=== PATIENT | female | born 1940 | race Caucasian/White ===

== ENCOUNTER → 2017-12-01 | Outpatient (CLI) | payer MEDICARE, OTHER | LOC: M.RAD 11:52 | DX: J06.9 Acute upper respiratory infection, unspecified (principal); Z88.1 Allergy status to other antibiotic agents; Z88.8 Allergy status to other drugs, medicaments and biological substances ==

== ENCOUNTER → 2018-07-12 | Outpatient (CLI) | payer MEDICARE, OTHER | LOC: M.RAD 15:57 | DX: R07.82 Intercostal pain (principal) ==

== ENCOUNTER 2020-07-02 18:55 | Inpatient (IN) | payer MEDICARE, OTHER ==
[~2020-07-02] VITALS: Ht 154.9 cm; Wt 70.8 kg
[2020-07-02 19:14] VITALS: BP 169/77
[2020-07-02] MEDS ORDERED: CIMZIA400 MG/2 M SUBQ (19:43)
[2020-07-02 19:44] LABS: HEMATOCRIT 38.8 % (37.0-47.0); HEMOGLOBIN 13.2 gm/dL (12.0-15.0); MCH 30.4 pg (26.0-34.0); MCV 89.6 fL (80.0-100.0); NUCLEATED RBCS 0 /100WBC; PLATELET COUNT* 283 thou/uL (150-400); RBC 4.33 mil/uL (4.20-5.00); RDW-CV 13.4 % (10.5-14.5); WBC 10.4 thou/uL (4.0-11.0)
[2020-07-02] MEDS ORDERED: LEFLUNOMIDE 1010 MG PO (19:44)
[2020-07-02] MEDS ORDERED: ELIQUIS5 MG PO (19:44)
[2020-07-02] MEDS ORDERED: LISINOPRIL20 MG PO (19:45)
[2020-07-02] MEDS ORDERED: TOPROL XL25 MG PO (19:46)
[2020-07-02] MEDS ORDERED: MIRAPEX0.5 MG PO (19:46)
[2020-07-02] MEDS ORDERED: PROLIA60 MG/1 ML SUBQ (19:47)
[2020-07-02] MEDS ORDERED: CRESTOR5 MG PO (19:47)
[2020-07-02] MEDS ORDERED: CALCIUM500 MG PO (19:48)
[2020-07-02] MEDS ORDERED: SERTRALINE HCL100 MG PO (19:48)
[2020-07-02] MEDS ORDERED: CALCIUM 1,0001 EACH PO (19:50)
[2020-07-02] MEDS ORDERED: FISH OIL 1,0001 EAC9 PO (19:50)
[2020-07-02] MEDS ORDERED: PROCTOSOL-HC28.35 GM TOP (19:51)
[2020-07-02] MEDS ORDERED: FOLIC ACID1 MG PO (19:51)
[2020-07-02 19:52] LABS: CALCIUM 8.7 mg/dL (8.5-10.1); POTASSIUM 4.3 mmol/L (3.5-5.1)
[2020-07-02] MEDS ORDERED: MAGNESIUM250 M1 PO (19:52)
[2020-07-02] MEDS ORDERED: MURO-12815 ML/BOT OPHTHALMIC (19:52)
[2020-07-02] MEDS ORDERED: SUPER THERAVIT1 EACH PO (19:52)
[2020-07-02 19:53] LABS: INR 1.1; PROTIME 11.4 Seconds (9.20-11.50)
[2020-07-02] MEDS ORDERED: MEDICAL THC (19:53)
[2020-07-02 19:56] LABS: ALBUMIN 2.7 g/dL (3.4-5.0); MAGNESIUM 2.2 mg/dL (1.8-2.4); TOTAL BILIRUBIN 0.3 mg/dL (<0.1-1.0); TOTAL PROTEIN 7.2 g/dL (6.4-8.2)
[2020-07-02 20:07] LABS: BE 1.2 mmol/L (-2 to +3); PCO2 35.1 mmHg (35.0-45.0); pH 7.463 (7.340-7.450)
[2020-07-02 20:12] LABS: PO2 57.8 mmHg (75.0-100.0)
[2020-07-02 20:18] LABS: ABSOLUTE BASOPHILS 0.1 thou/uL (0.0-0.2); ABSOLUTE EOSINOPHILS 2.3 thou/uL (0.0-0.7); ABSOLUTE LYMPHOCYTES 0.5 thou/uL (0.8-5.3); ABSOLUTE MONOCYTES 0.8 thou/uL (0.0-1.2); ABSOLUTE NEUTROPHILS 6.7 thou/uL (1.6-8.1); PLATELET ESTIMATE ADEQUATE
[2020-07-03 01:38] VITALS: BP 145/68
[2020-07-03 05:34] VITALS: BP 138/70
[2020-07-03 10:13] VITALS: BP 123/66
[2020-07-03 10:30] VITALS: BP 138/86
--- NOTE | 2020-07-03 14:00 | EKG ---
[place] [address] ELECTROCARDIOGRAM REPORT Name: TWAN LAMB Room: [address] IN ..#: [id number] Admission: 07/02/20 Attend Phys: Paul Juarez Discharge: Date of : 42 Date of Service: 07/02/20 190 Report #: [id number] THIS REPORT FOR: //name// [facility] ED Test Date: 2020-07-02 Test Time: 19:08:23 Pat Name: TWAN LAMB Department: Room: [facility] Gender: F River Captain: JESSE : 1940 Requested By: Belen Nieto Order Number: [id number] MD: Lj Castro Measurements Intervals [place] Rate: 90 P: -31 NV: 135 QRS: -29 QRSD: 94 T: 70 QT: 334 QTc: 409 Interpretive Statements Sinus tachycardia Premature atrial contractions borderline left axis deviation Low voltage, extremity and precordial leads No previous ECG available for comparison Electronically Signed On 07-03-2020 14:00:16 PRACTICING UROLOGIST by Lj Castro [email or web address] <ELECTRONICALLY SIGNED> By: Lj Castro MD, FACC 07/03/20 1400 [id number] Lj Castro MD, FAC /EPI
[2020-07-03 20:00] VITALS: BP 144/73
[2020-07-04 00:15] VITALS: BP 146/44
[2020-07-04 04:44] VITALS: BP 160/80
[2020-07-04 06:12] LABS: ABSOLUTE BASOPHILS 0.1 thou/uL (0.0-0.2); ABSOLUTE LYMPHOCYTES 0.5 thou/uL (0.8-5.3); ABSOLUTE MONOCYTES 0.8 thou/uL (0.0-1.2); ABSOLUTE NEUTROPHILS 11.4 thou/uL (1.6-8.1); BASOPHILS 0.4 %; HEMATOCRIT 37.2 % (37.0-47.0); HEMOGLOBIN 12.3 gm/dL (12.0-15.0); LYMPHOCYTES 3.9 %; MCH 29.5 pg (26.0-34.0); MCHC 33.2 g/dL (28.0-37.0); MCV 88.9 fL (80.0-100.0); MONOCYTES 6.3 %; NUCLEATED RBCS 0 /100WBC; PLATELET COUNT* 291 thou/uL (150-400); POLYS 89.4 %; RBC 4.18 mil/uL (4.20-5.00); RDW-CV 13.3 % (10.5-14.5); WBC 12.8 thou/uL (4.0-11.0)
[2020-07-04 06:26] LABS: ALBUMIN 2.5 g/dL (3.4-5.0); CALCIUM 8.2 mg/dL (8.5-10.1); CREATININE 0.6 mg/dL (0.6-1.3); MAGNESIUM 2.2 mg/dL (1.8-2.4); POTASSIUM 4.3 mmol/L (3.5-5.1); TOTAL BILIRUBIN 0.3 mg/dL (<0.1-1.0); TOTAL PROTEIN 6.8 g/dL (6.4-8.2)
[2020-07-04 08:10] VITALS: BP 179/77
[2020-07-04 12:51] VITALS: BP 153/82
[2020-07-04 13:16] LABS: URINE BILIRUBIN NEGATIVE (Negative); URINE BLOOD TRACE (Negative); URINE CLARITY CLEAR; URINE COLOR YELLOW; URINE GLUCOSE-RANDOM NEGATIVE (Negative); URINE KETONES NEGATIVE (Negative); URINE LEUKOCYTES-REFLEX NEGATIVE (Negative); URINE NITRITE-REFLEX NEGATIVE (Negative); URINE PROTEIN NEGATIVE (Negative); URINE UROBILINOGEN 0.2 E.U./dl (0.2-1.0)
[2020-07-04 17:10] VITALS: BP 140/64
[2020-07-04 20:30] VITALS: BP 162/66
[2020-07-05] VITALS (8 sets, daily range): BP systolic 116–150; BP diastolic 57–94
[2020-07-05 05:52] LABS: ABSOLUTE BASOPHILS 0.1 thou/uL (0.0-0.2); ABSOLUTE LYMPHOCYTES 0.6 thou/uL (0.8-5.3); ABSOLUTE MONOCYTES 1.2 thou/uL (0.0-1.2); ABSOLUTE NEUTROPHILS 11.4 thou/uL (1.6-8.1); BASOPHILS 0.5 %; HEMOGLOBIN 12.5 gm/dL (12.0-15.0); LYMPHOCYTES 4.5 %; MCH 29.8 pg (26.0-34.0); MCHC 33.7 g/dL (28.0-37.0); MCV 88.4 fL (80.0-100.0); MONOCYTES 9.4 %; MPV 7.2 fl. (7.2-11.1); NUCLEATED RBCS 0 /100WBC; PLATELET COUNT* 304 thou/uL (150-400); POLYS 85.6 %; RBC 4.19 mil/uL (4.20-5.00); RDW-CV 13.6 % (10.5-14.5); WBC 13.3 thou/uL (4.0-11.0)
[2020-07-05 06:12] LABS: PREALBUMIN 11.7 mg/dL (18.0-35.7)
[2020-07-05 06:15] LABS: ALBUMIN 2.4 g/dL (3.4-5.0); CALCIUM 8.6 mg/dL (8.5-10.1); CREATININE 0.6 mg/dL (0.6-1.3); POTASSIUM 4.1 mmol/L (3.5-5.1); TOTAL BILIRUBIN 0.3 mg/dL (<0.1-1.0); TOTAL PROTEIN 6.7 g/dL (6.4-8.2)
[2020-07-05 19:29] LABS: BE -0.6 mmol/L (-2 to +3); PCO2 VENOUS 41.6 mmHg (41.0-51.0); PO2 VENOUS 42.9 mmHg (35.0-45.0)
[2020-07-05 19:37] LABS: CALCIUM 8.5 mg/dL (8.5-10.1); CREATININE 0.9 mg/dL (0.6-1.3); MAGNESIUM 2.1 mg/dL (1.8-2.4)
[2020-07-06] VITALS (9 sets, daily range): BP systolic 91–146; BP diastolic 42–67
[2020-07-06 06:06] LABS: ABSOLUTE BASOPHILS 0.1 thou/uL (0.0-0.2); ABSOLUTE EOSINOPHILS 0.1 thou/uL (0.0-0.7); ABSOLUTE MONOCYTES 1.2 thou/uL (0.0-1.2); ABSOLUTE NEUTROPHILS 8.7 thou/uL (1.6-8.1); BASOPHILS 0.6 %; EOSINOPHILS 1.2 %; HEMATOCRIT 38.8 % (37.0-47.0); HEMOGLOBIN 12.9 gm/dL (12.0-15.0); LYMPHOCYTES 9.4 %; MCH 29.5 pg (26.0-34.0); MCHC 33.3 g/dL (28.0-37.0); MCV 88.4 fL (80.0-100.0); MONOCYTES 10.8 %; MPV 7.5 fl. (7.2-11.1); NUCLEATED RBCS 0 /100WBC; PLATELET COUNT* 318 thou/uL (150-400); RBC 4.38 mil/uL (4.20-5.00); RDW-CV 13.1 % (10.5-14.5); WBC 11.2 thou/uL (4.0-11.0)
[2020-07-06 06:20] LABS: ALBUMIN 2.4 g/dL (3.4-5.0); CALCIUM 8.7 mg/dL (8.5-10.1); CREATININE 0.7 mg/dL (0.6-1.3); MAGNESIUM 1.8 mg/dL (1.8-2.4); POTASSIUM 4.1 mmol/L (3.5-5.1); TOTAL BILIRUBIN 0.5 mg/dL (<0.1-1.0); TOTAL PROTEIN 6.4 g/dL (6.4-8.2)
--- NOTE | 2020-07-06 08:27 | EKG ---
[place] [address] ELECTROCARDIOGRAM REPORT Name: ZAINABTWAN C Room: [address] ADM IN .R.#: [id number] Admission: 07/02/20 Attend Phys: Paul Juarez Discharge: Date of : 42 Date of Service: 07/05/20 1837 Report #: [id number] THIS REPORT FOR: //name// [facility] Test Date: 2020-07-05 Test Time: 18:37:18 Pat Name: TWAN LAMB Department: Room: [address] Gender: F Supervisor Chemical: : 1940 Requested By: Daija Stewart Order Number: [id number] Abida MD: Kd Verdin Measurements Intervals [place] Rate: 127 P: MN: QRS: -27 QRSD: 81 T: 71 QT: 295 QTc: 429 Interpretive Statements Atrial fibrillation Inferior infarct, old Compared to ECG 07/02/2020 19:08:23 Sinus tachycardia no longer present Electronically Signed On 07-06-2020 8:27:25 REAL ESTATE ADMINISTRATOR by Kd Verdin [email or web address] <ELECTRONICALLY SIGNED> By: Kd Verdin MD, FACC 07/06/20 0827 1837 1837 Kd Verdin MD, [facility] /EPI
--- NOTE | 2020-07-06 17:09 | 2DMMODE ---
[place] [address] 2 D/M-MODE ECHOCARDIOGRAM Name: TWAN LAMB Ashley Room: [address] IN [facility]#: [id number] Admission: 07/02/20 Attend Phys: Paul Juarez Discharge: Date of : 42 Date of Service: 07/06/20 1709 Report #: [id number] THIS REPORT FOR: cc: Cheryle Diehl MD, Lin W. MD Blick, David R. MD [facility] ~ APPROVED REPORT Study performed: 07/06/2020 14:35:22 EXAM: Comprehensive 2D, Doppler, and color-flow Echocardiogram Patient Location: In-Patient Room #: [facility] Status: routine BSA: 1.69 HR: 62 bpm BP: 125/67 mmHg Rhythm: NSR Other Information Study Quality: Good Indications Atrial Fibrillation 2D Dimensions IVSd: 10.28 (7-11mm) LVOT Diam: 19.23 (18-24mm) LVDd: 43.51 mm PWd: 7.81 (7-11mm) Ascending Ao: 32.08 (22-36mm) LVDs: 22.92 (25-40mm) Volumes Left Atrial Volume (Systole) LA ESV Index: 19.80 mL/m2 Aortic Valve AoV Peak Elijah.: 1.39 m/s AO Peak Gr.: 7.77 mmHg LVOT Max P.75 mmHg AO Mean Gr.: 3.78 mmHg LVOT Mean P.78 mmHg LVOT Max V: 0.97 m/s AO V2 VTI: 24.76 cm LVOT Mean V: 0.62 m/s ANDRES (VTI): 2.68 cm2 LVOT V1 VTI: 22.87 [place] [address] 2 D/M-MODE ECHOCARDIOGRAM Name: TWAN LAMB Room: [address] IN .R.#: [id number] Admission: 07/02/20 Attend Phys: Paul Juarez Discharge: Date of : 42 Date of Service: 07/06/20 1709 Report #: [id number] E/A Ratio: 1.06 MV Decel. Time: 254.85 ms MV E Max Elijah.: 0.94 m/s MV PHT: 73.91 ms MVA (PHT): 2.98 cm2 TDI E/Lateral E': 13.43 E/Medial E': 13.43 Medial E' Elijah.: 0.07 m/s Lateral E' Elijah.: 0.07 m/s Pulmonary Valve PV Peak Elijah.: 0.90 m/s PV Peak Gr.: 3.21 mmHg Left Ventricle The left ventricle is normal size. There is normal LV segmental wall motion. There is normal left ventricular wall thickness. Left ventricular systolic function is normal. The left ventricular ejection fraction is within the normal range. LVEF is 55-60%. The left ventricular diastolic function is normal. Right Ventricle The right ventricle is normal size. The right ventricular systolic function is normal. Atria The left atrium size is normal. The right atrium size is normal. Aortic Valve The aortic valve is normal in structure. No aortic regurgitation is present. There is no aortic valvular stenosis. Mitral Valve The mitral valve is normal in structure. There is no mitral valve regurgitation noted. No evidence of mitral valve stenosis. Tricuspid Valve The tricuspid valve is normal in structure. Unable to assess PA pressure. Trace tricuspid regurgitation. Pulmonic Valve Pulmonic valve is not well visualized. There is no pulmonic valvular regurgitation[place] [address] 2 D/M-MODE ECHOCARDIOGRAM Name: TWAN LAMB Room: [address] IN [facility]#: [id number] Admission: 07/02/20 Attend Phys: Paul Juarez Discharge: Date of : 42 Date of Service: 07/06/20 1709 Report #: [id number] The aortic root is normal in size. IVC is normal in size and collapses >50% with inspiration. Pericardium There is no pericardial effusion. <Conclusion> Left ventricular systolic function is normal. The left ventricular ejection fraction is within the normal range. <ELECTRONICALLY SIGNED> By: Kd Verdin MD, FACC 07/06/201708 08 08 Kd Verdin MD, FAC /INF
--- NOTE | 2020-07-06 22:37 | CON ---
[address] [address] CONSULTATION Name: TWAN LAMB Room: [address] IN M.R.#: [id number] Admission: 07/02/20 Attend Phys: Will Daley Discharge: Date of : 42 Report #: [id number] THIS REPORT FOR: cc: Cheryle Diehl MD, Lin W. MD ~ Davin Sánchez MD DATE OF SERVICE: 07/03/2020 Consult has been requested by Dr. Rick Flores. INDICATION FOR CONSULTATION: COVID-19. HISTORY OF PRESENT ILLNESS: This is a 79-year-old female with past medical history is as mentioned below. This does include a history of atrial fibrillation. The patient is on long-term anticoagulation. She does have a history of marijuana use. There is no known history of smoking cigarettes. The patient is now admitted with progressively increasing cough as well as shortness of breath over the last several days. The patient prior to this admission has been treated as an outpatient, initially with azithromycin and then also with prednisone. The patient's respiratory complaints; however, continued to worsen, she also has been more lethargic. The patient reports that she has mostly been sleeping the last few days. She reports having had a clear nasal discharge, weakness, decrease in appetite, nausea. She has been wheezing at times. The patient therefore eventually came to the Emergency Room in this hospital. The patient has been hypoxemic. Currently, requiring 3-3.5 liters oxygen to maintain O2 saturation in the low 90s. Overall, she does report improvement in her shortness of breath since she was admitted. The patient does have significant interstitial infiltrates. She currently is not febrile. REVIEW OF SYSTEMS: The patient's review of systems for 12 points is negative except as mentioned above. PAST MEDICAL HISTORY: Atrial fibrillation, on anticoagulation. I do not have a measure of her left ventricular ejection fraction available at this time, hypertension, osteoporosis, restless legs syndrome, hyperlipidemia. SOCIAL HISTORY: There is a history of marijuana use. There is no known history of smoking cigarettes. No known history of illegal drug use or significant alcohol use. FAMILY HISTORY: No pertinent family history. CURRENT MEDICATIONS: List in [employer] [place] [address] CONSULTATION Name: TWAN LAMB Room: [address]#: [id number] Admission: 07/02/20 Attend Phys: Will Daley Discharge: Date of : 42 Report #: [id number] HOME MEDICATIONS: [facility]. ALLERGIES: THE PATIENT IS REPORTED TO HAVE HAD AN ALLERGY TO CEPHALEXIN. PHYSICAL EXAMINATION: GENERAL: She is alert, awake and oriented, does not appear to be in any distress. VITAL SIGNS: Has a pulse of 76 and a blood pressure of 144/73. She is saturating 93% on 3-3.5 liters nasal cannula, respiratory rate was around 18-20 at the time of my evaluation, she is afebrile with a temperature of 36.8. HEENT: Head is normocephalic and atraumatic. NECK: Does not show raised JVP. CHEST: Breath sounds bilaterally equal, mildly decreased. No added sounds. HEART: Regular. There is no murmur. ABDOMEN: Soft and nontender. EXTREMITIES: Lower extremities show no edema and no calf tenderness. SKIN: Dry and intact. NEUROLOGICAL: Moves all extremities bilaterally equally and spontaneously with no focal deficit identified. LABORATORY DATA: The patient's chest x-ray films as well as report are reviewed. The patient's lab work including arterial blood gases in [facility] reviewed. ASSESSMENT/PLAN: 1. Acute hypoxemic respiratory failure secondary to COVID-19. Recommend continuing to titrate oxygen. 2. COVID-19. Considering that the patient has significant hypoxemia, I agree with dexamethasone as well as remdesivir as is currently ordered. I did discuss with the patient regarding use of convalescent plasma. The patient is agreeable and understands risks and benefits. If we were to recommend convalescent plasma for her, I would order a type and screen for tomorrow morning labs. In case the patient fails to improve, I will recommend having a low threshold of ordering convalescent plasma tomorrow morning. 3. Pulmonary infiltrates. I agree with Levaquin as currently prescribed. The patient did receive azithromycin as an outpatient recently as above. 4. Atrial fibrillation noted to be on anticoagulation. I do not have previous left ventricular ejection fraction available at this time. Thanks for this consultation. <ELECTRONICALLY SIGNED> By: Davin Sánchez MD 07/06/20 2237 2326 [id number] Sánchez MD /nt
[2020-07-07 01:05] VITALS: BP 127/55
[2020-07-07 04:30] VITALS: BP 123/83
[2020-07-07 06:10] LABS: CHOLESTEROL 87 mg/dL (<200); HDL CHOLESTEROL 41 mg/dL (>40); LDL CHOLESTEROL 41 mg/dL (<100); TC:HDL 2.1 Ratio (Not establshd); TRIGLYCERIDE 25 mg/dL (<150); VLDL 5 mg/dL (<40)
[2020-07-07 06:16] LABS: SERUM ASSESSMENT CLEAR
[2020-07-07 07:45] VITALS: BP 138/69
[2020-07-07 12:00] VITALS: BP 130/57
[2020-07-07 16:00] VITALS: BP 126/57
[2020-07-07 19:52] LABS: HEMATOCRIT 38.4 % (37.0-47.0); HEMOGLOBIN 13.1 gm/dL (12.0-15.0); MCH 30.1 pg (26.0-34.0); MCHC 34.1 g/dL (28.0-37.0); MCV 88.4 fL (80.0-100.0); MPV 7.1 fl. (7.2-11.1); NUCLEATED RBCS 0 /100WBC; PLATELET COUNT* 350 thou/uL (150-400); RBC 4.34 mil/uL (4.20-5.00); RDW-CV 13.4 % (10.5-14.5); WBC 10.5 thou/uL (4.0-11.0)
[2020-07-07 20:03] LABS: ALBUMIN 2.3 g/dL (3.4-5.0); CALCIUM 8.1 mg/dL (8.5-10.1); CREATININE 0.9 mg/dL (0.6-1.3); POTASSIUM 3.9 mmol/L (3.5-5.1); TOTAL BILIRUBIN 0.3 mg/dL (<0.1-1.0); TOTAL PROTEIN 6.6 g/dL (6.4-8.2)
[2020-07-07 20:07] LABS: ABSOLUTE LYMPHOCYTES 0.2 thou/uL (0.8-5.3); ABSOLUTE MONOCYTES 0.5 thou/uL (0.0-1.2); ABSOLUTE NEUTROPHILS 9.8 thou/uL (1.6-8.1); PLATELET ESTIMATE ADEQUATE
[2020-07-08] VITALS: BP 113/55
[2020-07-08 04:00] VITALS: BP 154/68
[2020-07-08 09:00] VITALS: BP 125/55
[2020-07-08 16:00] VITALS: BP 150/63
[2020-07-08 20:00] VITALS: BP 112/86
[2020-07-09 04:15] VITALS: BP 149/59
[2020-07-09 04:57] LABS: ABSOLUTE LYMPHOCYTES 0.9 thou/uL (0.8-5.3); ABSOLUTE MONOCYTES 1.2 thou/uL (0.0-1.2); BASOPHILS 0.2 %; EOSINOPHILS 0.1 %; HEMATOCRIT 35.6 % (37.0-47.0); LYMPHOCYTES 7.4 %; MCH 29.6 pg (26.0-34.0); MCHC 33.6 g/dL (28.0-37.0); MCV 88.3 fL (80.0-100.0); MONOCYTES 9.8 %; MPV 7.4 fl. (7.2-11.1); NUCLEATED RBCS 0 /100WBC; PLATELET COUNT* 335 thou/uL (150-400); POLYS 82.5 %; RBC 4.04 mil/uL (4.20-5.00); RDW-CV 13.3 % (10.5-14.5); WBC 12.1 thou/uL (4.0-11.0)
[2020-07-09 06:13] LABS: ALBUMIN 2.1 g/dL (3.4-5.0); CALCIUM 8.5 mg/dL (8.5-10.1); CREATININE 0.7 mg/dL (0.6-1.3); POTASSIUM 3.7 mmol/L (3.5-5.1); TOTAL BILIRUBIN 0.3 mg/dL (<0.1-1.0); TOTAL PROTEIN 5.7 g/dL (6.4-8.2)
[2020-07-09 08:00] VITALS: BP 175/82
--- NOTE | 2020-07-09 09:29 | CON ---
[address] [address] CONSULTATION Name: TWAN LAMB Room: [address] IN M.R.#: [id number] Admission: 07/02/20 Attend Phys: Will Daley Discharge: Date of : 42 Report #: [id number] THIS REPORT FOR: cc: Cheryle Diehl MD, Lin W. MD ~ Kd Verdin MD [facility] DATE OF SERVICE: 07/06/2020 CARDIOLOGY CONSULTATION HISTORY OF PRESENT ILLNESS: The patient is a 79-year-old single white female who I was asked to see in the hospital today after she was noted to be in atrial fibrillation. The history is obtained from the patient. Unfortunately, there are no old records available. There are no family members available at this time. The patient notes in 2017, she was admitted to [facility] and had back surgery. She apparently went into atrial fibrillation following the surgery. She was placed on Eliquis for anticoagulation. She did not require cardioversion. She has been followed by Dr. Natalie Garcia with the cardiology clinic at [facility] since that time. She apparently had a stress test in the past. Recently, she has been short of breath and coughing. She was brought to the Emergency Room 4 days ago and tested positive for COVID-19. She was admitted. She was in sinus rhythm when she was admitted. She did have an episode of atrial fibrillation on 07/04 lasted few seconds. She had recurrent atrial fibrillation last night and she was placed on intravenous diltiazem. Cardiology consultation requested. She denies a history of myocardial infarction, chest tightness, peripheral edema, lightheadedness or syncope. PAST MEDICAL HISTORY: She has had back surgery, tonsillectomy, cholecystectomy, hypertension. MEDICATIONS: On admission consists of Eliquis, lisinopril, metoprolol, Mirapex, sertraline. ALLERGIES: SHE HAS AN ALLERGY TO KEFLEX. FAMILY HISTORY: Her mother had congestive heart failure. SOCIAL HISTORY: She is , lives in [place]. Quit smoking years ago, rarely drinks alcohol. REVIEW OF SYSTEMS: She has had a previous history of bronchitis and uses inhaler. No stroke, liver disease, kidney disease. She had a skin cancer removed in the past. [place] [address] CONSULTATION Name: TWAN LAMB Room: [address]#: [id number] Admission: 07/02/20 Attend Phys: Will Daley Discharge: Date of : 42 Report #: [id number] PHYSICAL EXAMINATION: GENERAL: Revealed an elderly female lying in bed. She appeared in no acute distress. VITAL SIGNS: She had a blood pressure of 120/60, pulse is 90 and irregular. She is afebrile. HEENT: She was anicteric. Conjunctivae are pink. Mucous membranes are moist. NECK: Veins not distended. CHEST: Revealed crackles in the bases. CARDIOVASCULAR: Irregular rhythm. No significant murmur. ABDOMEN: Soft. EXTREMITIES: Had no edema. Dorsalis pedis pulse 3+. SKIN: Cool and dry. NEUROLOGIC: Nonfocal. DIAGNOSTIC DATA: ECG shows atrial fibrillation, increased ventricular response rate, nonspecific ST-segment changes. Her chest x-ray on admission showed normal heart size, bilateral infiltrates, suggesting pneumonitis. LABORATORY WORK: Sodium 134, creatinine 0.7. White blood cell count 11.2, hemoglobin 12.9. IMPRESSION AND RECOMMENDATIONS: 1. COVID-19 pneumonia. 2. Atrial fibrillation. The patient is on Eliquis, I would recommend switching from metoprolol to sotalol in an effort to convert the patient. 3. Hypertension. The patient is on a beta lanette and ADOLPH inhibitor. <ELECTRONICALLY SIGNED> By: Kd Verdin MD, FACC 07/09/20 0929 1128 [id number] Verdin MD, FACC /nt
[2020-07-09 12:56] VITALS: BP 112/65
--- NOTE | 2020-07-09 16:20 | EKG ---
[place] [address] ELECTROCARDIOGRAM REPORT Name: TWAN LAMB Room: [address] ADM IN M.R.#: [id number] Admission: 07/02/20 Attend Phys: Paul Juarez Discharge: Date of : 42 Date of Service: 07/09/20 1351 Report #: [id number] THIS REPORT FOR: //name// [facility] Test Date: 2020-07-09 Test Time: 13:51:40 Pat Name: TWAN LAMB Department: Room: [address] Gender: F Solutions Executive Security: OSMIN : 1940 Requested By: Deepti Potts Order Number: [id number] Abida MD: Rodney Watson Measurements Intervals [place] Rate: 62 P: 41 [place]: 135 QRS: -28 QRSD: 92 T: 59 QT: 400 QTc: 407 Interpretive Statements Sinus rhythm PAC Borderline left axis deviation Consider anterior infarct Compared to ECG 07/05/2020 18:37:18 PAC is noted Atrial fibrillation no longer present Myocardial infarct finding still cannot be excluded Electronically Signed On 07-09-2020 16:19:54 BEAUTY CULTURE TEACHER by Rodney Watson [email or web address] <ELECTRONICALLY SIGNED> By: Rodney Watson MD, FACC 07/09/20 1619 1351 1351 Rodney Watson MD, FACC /EPI
[2020-07-09] MEDS ORDERED: SORINE 80 MG TA80 M1 PO (16:34)
[2020-07-09] MEDS ORDERED: DOXYCYCLINE 10100 MG PO (16:34)
[2020-07-09] MEDS ORDERED: NEXIUM40 MG PO (16:35)
[2020-07-09] MEDS ORDERED: VITAMIN D325 MCG PO (16:36)
[2020-07-09] MEDS ORDERED: VITAMIN C1000 MG PO (16:37)
[2020-07-09] MEDS ORDERED: PROAIR HFA8.5 GM INH (16:41)
[2020-07-09] MEDS ORDERED: ADVAIR 250-501 EACH INH (16:41)
[2020-07-09 17:02] VITALS: BP 148/79
[2020-07-09 18:44] VITALS: BP 148/79
== END 2020-07-09 19:40 | disposition home health service (06) | DRG 871 ==
LOC: M.ERS 18:55 → M.TBA-ER 22:30 → M.ORTHSURG 07-03 10:26
PROVIDERS: Internal Medicine; Internal Medicine Cardiovascular Disease; Internal Medicine Critical Care Medicine; Personal Emergency Response Attendant; ADMIT Internal Medicine; ATTEND Internal Medicine
PROC: XW033E5 Introduction of Remdesivir Anti-infective into Peripheral Vein, Percutaneous Approach, New Technology Group 5 (ICD-10-PCS; principal; 2020-07-03)
DX: A41.89 Other specified sepsis (principal); U07.1 COVID-19; J96.01 Acute respiratory failure with hypoxia; J12.82 Pneumonia due to coronavirus disease 2019; J44.1 Chronic obstructive pulmonary disease with (acute) exacerbation; J44.0 Chronic obstructive pulmonary disease with (acute) lower respiratory infection; E87.5 Hyperkalemia; M81.0 Age-related osteoporosis without current pathological fracture; I48.0 Paroxysmal atrial fibrillation; F12.90 Cannabis use, unspecified, uncomplicated; F17.200 Nicotine dependence, unspecified, uncomplicated; I10 Essential (primary) hypertension; G25.81 Restless legs syndrome; Z79.01 Long term (current) use of anticoagulants; Z79.899 Other long term (current) drug therapy; Z88.1 Allergy status to other antibiotic agents; Z90.49 Acquired absence of other specified parts of digestive tract

== ENCOUNTER → 2020-07-02 | Outpatient (CLI) | payer MEDICARE, OTHER ==
[~2020-07-02] MED LIST: CALCIUM 1,0001 EACH PO; CALCIUM500 MG PO; CIMZIA400 MG/2 M SUBQ; CRESTOR5 MG PO; ELIQUIS5 MG PO; FISH OIL 1,0001 EAC9 PO; FOLIC ACID1 MG PO; LEFLUNOMIDE 1010 MG PO; LISINOPRIL20 MG PO; MAGNESIUM250 M1 PO; MEDICAL THC; MIRAPEX0.5 MG PO; MURO-12815 ML/BOT OPHTHALMIC; PROCTOSOL-HC28.35 GM TOP; PROLIA60 MG/1 ML SUBQ; SERTRALINE HCL100 MG PO; SUPER THERAVIT1 EACH PO; TOPROL XL25 MG PO
== END ==
LOC: M.RAD 13:58
PROVIDERS: ATTEND Internal Medicine
DX: R05 Cough (principal)

== ENCOUNTER 2020-07-23 21:11 | Inpatient (IN) | payer MEDICARE, OTHER ==
[~2020-07-23] VITALS: Ht 152.4 cm; Wt 66.7 kg
[2020-07-23 21:18] VITALS: BP 146/66
[2020-07-23 22:24] LABS: BE 0.6 mmol/L (-2 to +3); PCO2 34.1 mmHg (35.0-45.0); PO2 65.7 mmHg (75.0-100.0); pH 7.463 (7.340-7.450)
[2020-07-23 22:24] LABS: ABSOLUTE EOSINOPHILS 0.1 thou/uL (0.0-0.7); ABSOLUTE LYMPHOCYTES 0.7 thou/uL (0.8-5.3); ABSOLUTE MONOCYTES 0.5 thou/uL (0.0-1.2); ABSOLUTE NEUTROPHILS 2.6 thou/uL (1.6-8.1); BASOPHILS 0.7 %; EOSINOPHILS 2.5 %; HEMATOCRIT 36.2 % (37.0-47.0); HEMOGLOBIN 12.2 gm/dL (12.0-15.0); LYMPHOCYTES 18.1 %; MCH 29.2 pg (26.0-34.0); MCHC 33.6 g/dL (28.0-37.0); MCV 86.8 fL (80.0-100.0); MPV 7.3 fl. (7.2-11.1); NUCLEATED RBCS 0 /100WBC; PLATELET COUNT* 160 thou/uL (150-400); POLYS 65.7 %; RBC 4.17 mil/uL (4.20-5.00); RDW-CV 13.9 % (10.5-14.5); WBC 3.9 thou/uL (4.0-11.0)
[2020-07-23 22:35] LABS: CALCIUM 7.9 mg/dL (8.5-10.1); CREATININE 0.7 mg/dL (0.6-1.3); POTASSIUM 4.4 mmol/L (3.5-5.1)
[2020-07-23 22:37] LABS: APTT 34.9 Seconds (25.0-31.3); INR 1.1; PROTIME 11.3 Seconds (9.20-11.50)
[2020-07-23 22:39] LABS: ALBUMIN 2.3 g/dL (3.4-5.0); MAGNESIUM 1.8 mg/dL (1.8-2.4); TOTAL BILIRUBIN 0.3 mg/dL (<0.1-1.0); TOTAL PROTEIN 6.5 g/dL (6.4-8.2)
[2020-07-23 22:40] LABS: INFLUENZA A ANTIGEN Negative (Negative); INFLUENZA B ANTIGEN Negative (Negative)
--- NOTE | 2020-07-24 01:49 | NUR ---
ASSISTED PT TO THE BSC, PT STEADY STAND BY ASSIST; CHANGED BED PT PLACED IN HOSPITAL BED; MONITOR TRACING SR, IV CHANGED PER PTS REQUEST; CALL LIGHT WITHIN REACH WILL CONTINUE TO MONITOR; COVID PRECAUTIONS IN PLACE
[2020-07-24 05:30] VITALS: BP 120/52
--- NOTE | 2020-07-24 06:06 | NUR ---
NOTED DURING BOARDING ASSESSMENT IRREGULAR HR SA; NOTIFIED DR HERRMANN ORDERS RECEIVED TO RESTART SOTOLOL 80MG X1 AND ELIQUIS PT HX AFIB; PT CURRENTLY AFIB RATE 120'S STIP ON THE CHART; PT DIAPHORETIC, ASSISTED TO THE BSC, GOWN AND LINENS CHANGED; CALL LIGHT WITHIN REACH WILL CONTINUE TO MONITOR
[2020-07-24 08:14] LABS: CALCIUM 7.5 mg/dL (8.5-10.1); CREATININE 0.6 mg/dL (0.6-1.3); POTASSIUM 4.6 mmol/L (3.5-5.1)
[2020-07-24 09:30] VITALS: BP 125/56
--- NOTE | 2020-07-24 13:03 | NUR ---
SON CALLED AND REQUESTING CASE MANAGEMENT DUE TO PATIENT LIVING AT HOME BY HERSELF AND FEELS LIKE THAT SHE WILL NEED HELP IN THE HOME TO HELP MANAGE HER CARE AFTER DISCHARGE FROM THE HOSPITAL. SON STATES HE WORKS AND DUE TO HIS SCHEDULE HE IS UNABLE TO HELP MANAGE HER CARE AT HOME.
[2020-07-24 15:00] VITALS: BP 114/68; BP 125/56
--- NOTE | 2020-07-24 16:11 | EKG ---
[place] [address] ELECTROCARDIOGRAM REPORT Name: TWAN LAMB Room: [address] ADM IN M.R.#: [id number] Admission: 07/24/20 Attend Phys: Daija Stewart Discharge: Date of : 42 Date of Service: 07/23/202129 Report #: [id number] THIS REPORT FOR: //name// [facility] ED Test Date: 2020-07-23 Test Time: 21:30:15 Pat Name: TWAN LAMB Department: Room: [address] Gender: F Airborne Operations Superintendent: MR : 1940 Requested By: Belen Nieto Order Number: [id number] Abida MD: Rodney Watson Measurements Intervals [place] Rate: 79 P: -7 MO: 150 QRS: -29 QRSD: 88 T: 42 QT: 360 QTc: 413 Interpretive Statements Sinus rhythm Atrial premature complex Abnormal R-wave progression, late transition Inferior infarct, old possible Compared to ECG 07/09/2020 13:51:40 No significant changes Electronically Signed On 07-24-2020 16:11:37 EXHIBITION SPECIALIST by Rodney Watson [email or web address] <ELECTRONICALLY SIGNED> By: Rodney Watson MD, FACC 07/24/20 1611 29 29 Rodney Watson MD, FACC /EPI
--- NOTE | 2020-07-24 19:13 | NUR ---
PT A&OX4 VSS. PT UP AD NAM. PT REMAINS CONTINENT OF B/B. PT UP AD NAM. IV ABX INFUSED ORDERED. PT ON 3L O2 BY NC. IV TO LFA PATENT, DRESSING C/D/I. PT RESTS IN ROOM WITH CALL LIGHT AND PHONE IN REACH.
[2020-07-24 19:45] VITALS: BP 111/47
[2020-07-25] VITALS: BP 116/52
[2020-07-25 03:51] LABS: HEMATOCRIT 33.9 % (37.0-47.0); HEMOGLOBIN 11.3 gm/dL (12.0-15.0); MCH 28.9 pg (26.0-34.0); MCHC 33.3 g/dL (28.0-37.0); MCV 86.6 fL (80.0-100.0); MPV 7.6 fl. (7.2-11.1); RBC 3.91 mil/uL (4.20-5.00); WBC 9.2 thou/uL (4.0-11.0)
[2020-07-25 04:00] VITALS: BP 109/58
[2020-07-25 04:17] LABS: ALBUMIN 2.1 g/dL (3.4-5.0); CALCIUM 7.8 mg/dL (8.5-10.1); CREATININE 0.8 mg/dL (0.6-1.3); POTASSIUM 4.2 mmol/L (3.5-5.1); TOTAL BILIRUBIN 0.2 mg/dL (<0.1-1.0); TOTAL PROTEIN 6.1 g/dL (6.4-8.2)
[2020-07-25 04:22] LABS: URINE BILIRUBIN NEGATIVE (Negative); URINE BLOOD NEGATIVE (Negative); URINE CLARITY CLEAR; URINE COLOR YELLOW; URINE GLUCOSE-RANDOM NEGATIVE (Negative); URINE KETONES NEGATIVE (Negative); URINE LEUKOCYTES-REFLEX NEGATIVE (Negative); URINE NITRITE-REFLEX NEGATIVE (Negative); URINE PROTEIN NEGATIVE (Negative); URINE SPECIFIC GRAVITY <= 1.005 (1.005-1.030); URINE UROBILINOGEN 0.2 E.U./dl (0.2-1.0)
[2020-07-25 07:50] VITALS: BP 144/72
--- NOTE | 2020-07-25 08:11 | NUR ---
PT SLEPT FAIRLY WELL OVERNIGHT. TELE SR. O2 2.5L NC SAT 96% OVERNIGHT. UP AD NAM IN ROOM TO BATHROOM TO VOID WITHOUT DIFFICULTY. URINE AND SPUTUM SENT TO LAB THIS SHIFT. CT CHEST DONE. MRSA NASAL SWAB SENT TO LAB. PT AWAKE THIS MORNING WITH LOOSE PRODUCTIVE COUGH-SPECIMEN OBTAINED FOR LAB. SOB WITH EXERTION, TEMP 100 AND PT STATES SHE FEELS WEAK. UP WITH ASSIST TO BATHROOM. ZOFRAN GIVEN FOR CO NAUSEA AND WILL ATTEMPT TYLENOL AFTER NAUSEA SUBSIDES. LHAND IV, ZOSYN GIVEN ORDERED. REMAINS ON COVID ISOLATION. ABLE TO USE CALL LITE AND MAKE NEEDS KNOWN.
[2020-07-25 10:33] LABS: BE -0.8 mmol/L (-2 to +3); PCO2 34.7 mmHg (35.0-45.0); PO2 100.8 mmHg (75.0-100.0); pH 7.437 (7.340-7.450)
[2020-07-25 12:10] VITALS: BP 120/54
--- NOTE | 2020-07-25 16:00 | NUR ---
SPOKE WITH PT.ON PHONE IN ROOM. SHE SAID SHE LIVES ALONE. SHE HAD GOTTEN WEAK AT HOME SINCE SHE WAS DISCHARGED EARLIER IN JUN. SHE DOES NOT USE A WALKER OR ANY OTHER DME AT [facility] TIME. THERAPY CLEARED HER SHE WALKED 100FT WITHOUT ASSISTANCE AND NO DME. SON HAD CALLED ER NURSE STATING HE WANTED SOME HELP IN THE HOME HE WORKS . SHE IS CURRENTLY ON SERVICE WITH [employer] . IF PT.AGREEABLE WILL GIVE PRIVATE DUTY LIST.
[2020-07-25 16:46] VITALS: BP 132/56
--- NOTE | 2020-07-25 18:57 | NUR ---
PT A&OX4 VSS. LOOSE COUGH, SPUTUM SENT TO LAB PRIOR TO ASSUMING CARE OF PT THIS AM. PT SINUS ON MONITOR. IV TO LFA DC'D, NEW IV STARTED IN L HAND. IV PATENT, DRESSING C/D/I. ABX INFUSING PER AUG. PT ON 5L O2 NC. PT UP AD NAM, GAIT STEADY. PT UP TO RECLINER THIS SHIFT. PT REMAINS CONTINENT OF B/B. PT RELOCATED THIS SHIFT TO ACCOMMODATE [facility] [place]. FAMILY UPDATED BY PHONE THIS SHIFT. PT DENIES PAIN, N/V. PT RESTS IN BED WITH CALL LIGHT AND PHONES IN REACH.
[2020-07-25 21:30] VITALS: BP 103/64
[2020-07-26] VITALS: BP 106/45
[2020-07-26 04:00] VITALS: BP 132/64
--- NOTE | 2020-07-26 05:28 | NUR ---
PT AO X4 TALKING ON PHONE WITH FAMILY WHEN I ARRIVED TO ROOM. PT IS ON 5L NC WITH LUNGS DINISHED WITH WHEEZE IN RUL. SHE HAS A NONPRODUCTIVE COUGH. PT HAS BEEN WALKING TO TOILET WITHOUT PROBLEMS. VSS, SHE IS ON ELIQUIS FOR VTE. SHE CONTINUES TO GET FLUIDS AND IV ANTIBIOTICS. WCTM
[2020-07-26 05:44] LABS: HEMATOCRIT 30.9 % (37.0-47.0); HEMOGLOBIN 10.3 gm/dL (12.0-15.0); MCH 28.9 pg (26.0-34.0); MCHC 33.3 g/dL (28.0-37.0); MCV 86.7 fL (80.0-100.0); MPV 7.6 fl. (7.2-11.1); RBC 3.57 mil/uL (4.20-5.00); RDW-CV 14.2 % (10.5-14.5); WBC 8.6 thou/uL (4.0-11.0)
[2020-07-26 05:59] LABS: CALCIUM 7.6 mg/dL (8.5-10.1); CREATININE 0.6 mg/dL (0.6-1.3); POTASSIUM 4.3 mmol/L (3.5-5.1)
[2020-07-26 08:00] VITALS: BP 130/67
[2020-07-26 14:46] VITALS: BP 93/55
[2020-07-26 17:26] VITALS: BP 120/60
--- NOTE | 2020-07-26 20:08 | NUR ---
ASSUMED PT CARE AT 0730, PT AOX4, NO C/O PAIN OR SHORTNESS OF BREATH. PT C/O NAUSEA THIS MORNING AND VOMITED ONCE. PT CLEANED UP AND ZOFRAN GIVEN, COOL WASH CLOTHS AND ICE GIVEN WELL. PT TEMPERATURE TURNED DOWN IN THE ROOM AND PT STATES SHE FEELS BETTER NOW. PT GOAL IS TO KEEP SATS ABOVE 90% AND REMAIN FREE FROM N/V. MEDS PER AUG, HOURLY ROUNDING OBSERVED, CALL LIGHT W/IN REACH, PT UP AD NAM.
[2020-07-26 20:15] VITALS: BP 119/54
[2020-07-27] VITALS: BP 115/50
[2020-07-27 04:00] VITALS: BP 123/48
--- NOTE | 2020-07-27 04:56 | NUR ---
PT LYING IN BED AT TIME OF ASSESSMENT, SHE STATES SHE WAS NAUSEOUS THIS AM AND HAD SOME VOMITING BUT ATTRIBUTES IT TO TAKING MEDS ON EMPTY STOMACH. SHE REPORTS NO FURTHER VOMITING. VSS WITH EXCEPTION OF FEVER OF 101.3 FOR WHICH TYLENOL WAS GIVEN, PT HAS WHEEZES IN BOTH UPPER LOBES AND STATES HER COUGH IS NONPRODUCTIVE. PT IS VOIDING PER BSC AND HAD SMALL BM YESTERDAY. PT IS GETTING IV ANTIBIOTICS. SHE REQUESTED NOT TO HAVE 0300 BREATHING TX SO SHE COULD GET SOME REST.
[2020-07-27 05:26] LABS: HEMATOCRIT 29.6 % (37.0-47.0); MCH 29.3 pg (26.0-34.0); MCHC 33.6 g/dL (28.0-37.0); RBC 3.41 mil/uL (4.20-5.00); RDW-CV 14.1 % (10.5-14.5); WBC 7.5 thou/uL (4.0-11.0)
[2020-07-27 05:41] LABS: ALBUMIN 1.9 g/dL (3.4-5.0); CALCIUM 7.8 mg/dL (8.5-10.1); CREATININE 0.6 mg/dL (0.6-1.3); MAGNESIUM 2.1 mg/dL (1.8-2.4); POTASSIUM 4.7 mmol/L (3.5-5.1); TOTAL BILIRUBIN 0.3 mg/dL (<0.1-1.0); TOTAL PROTEIN 5.7 g/dL (6.4-8.2)
[2020-07-27 08:00] VITALS: BP 133/55
[2020-07-27 11:46] VITALS: BP 145/61
--- NOTE | 2020-07-27 13:00 | NUR ---
ON 3 02. HAD TEMP OF 101.3 LAST EVENING. CAN BE UP IN ROOM AD NAM. SHE IS CURRENT WITH [facility]. LAURA IS AWARE SHE IS IN THE HOPSPITAL AND SAID THEY WOULD RESUME AT DISCHARGE WITH ORDERS. [facility] [phone]/ [phone]
[2020-07-27 16:00] VITALS: BP 134/67
--- NOTE | 2020-07-27 18:13 | NUR ---
ASSUMED PT CARE AT 0730, PT AOX4, PT HAS MINOR FEVER AND ARTHRITIS PAIN TREATED W/ PRN TYLENOL. PT C/O SHORTNESS OF BREATH THIS AFTERNOON, O2 BUMPED UP TO 8L, SATS ABOVE 90% AND PT HELPED UP TO BATHROOM FROM THIS POINT ON. PT ISO STATUS DC'D R/T BEING POSITIVE FOR COVID FOR OVER 10 DAYS BUT PT NOT MOVED UNTIL TOMORROW PER SON'S REQUEST BECAUSE HE CAN'T COME SEE HER UNTIL TOMORROW R/T WAITING FOR HIS OWN COVID TEST TO COME BACK. PT GOAL IS TO KEEP SATS ABOVE 90%. MEDS PER AUG, HOURLY ROUNDING OBSERVED, PT UP AT NAM TO BEDSIDE COMODE, CALL LIGHT W/IN REACH.
[2020-07-27 20:23] VITALS: BP 109/64
[2020-07-28] VITALS (7 sets, daily range): BP systolic 104–137; BP diastolic 56–98
--- NOTE | 2020-07-28 05:09 | NUR ---
PT A&O, AT 2110 PT HR 130'S-140'S, PHYSICIAN NOTIFIED - ORDER GIVEN AND ADMINISTERED FOR 1X DOES 5 MG METOPROLOL. AT 2330 EKG SHOWED AFIB, DR. MATTHEWS CONTACT AND ORDER GIVEN FOR CARDIOLOGY CONSULT STAT. DR. LAW CONTACTED AT 0027, ORDER GIVEN FOR 1X DOSE 40 MG SOTALOL. AT APPROX 0515 PT IN SR WITH HR IN 60'S. NO C/O PAIN OR DISCOMFORT THIS SHIFT. WILL CONTINUE TO MONITOR.
[2020-07-28 05:51] LABS: HEMATOCRIT 33.6 % (37.0-47.0); HEMOGLOBIN 11.3 gm/dL (12.0-15.0); MCH 28.5 pg (26.0-34.0); MCHC 33.5 g/dL (28.0-37.0); MCV 85.1 fL (80.0-100.0); MPV 7.2 fl. (7.2-11.1); NUCLEATED RBCS 0 /100WBC; RBC 3.95 mil/uL (4.20-5.00); RDW-CV 14.4 % (10.5-14.5); WBC 6.6 thou/uL (4.0-11.0)
[2020-07-28 05:58] LABS: PLATELET COUNT* 397 thou/uL (150-400)
[2020-07-28 06:03] LABS: ALBUMIN 2.3 g/dL (3.4-5.0); CALCIUM 7.7 mg/dL (8.5-10.1); CREATININE 0.8 mg/dL (0.6-1.3); MAGNESIUM 1.7 mg/dL (1.8-2.4); TOTAL BILIRUBIN 0.5 mg/dL (<0.1-1.0); TOTAL PROTEIN 6.5 g/dL (6.4-8.2)
[2020-07-28 06:06] LABS: POTASSIUM 3.4 mmol/L (3.5-5.1)
[2020-07-28 09:13] LABS: ABSOLUTE LYMPHOCYTES 0.3 thou/uL (0.8-5.3); ABSOLUTE MONOCYTES 0.3 thou/uL (0.0-1.2); PLATELET ESTIMATE ADEQUATE
--- NOTE | 2020-07-28 17:29 | NUR ---
ASSUMED PT CARE AT APPROX 0730, PT AOX4, C/O GENERALIZED PAIN R/T ARTHRITIS TREATED W/ PRN TYLENOL W/ RELIEF. PT HAD NO C/O SHORTNESS OF BREATH TODAY, WORKED W/ RT AND TITRATED O2 FROM 13L TO 11L, SATS ABOVE 90%. PUREWIC IN PLACE FOR PT COMFORT R/T RECEIVING LASIX. PT GOAL IS TO KEEP SATS ABOVE 90%, MEDS PER MAR, HOURLY ROUNDING OBSERVED, FALL PRECAUTIONS IN PLACE, CALL LIGHT W/IN REACH.
[2020-07-29 04:44] VITALS: BP 142/67
--- NOTE | 2020-07-29 05:36 | NUR ---
PT AO X4 WITH INCREASED OXYGEN NEED, NOW ON 11L HFNC. SHE DENIES SOA,COUGH, OR CHEST PAIN. LUNGS CTA/DIM. SHE IS ON K/MG PROTOCOL WITH REPLACEMENT YESTERDAY. PT RECEIVED LASIX DURING DAY SHIFT AND HAS PURE WICK IN PLACE WITH CLEAR YELLOW URINE IN ADEQUATE AMOUNT OUT. SHE IS CURRENTLY ON STEROIDS AND IV ANTIBIOTICS.
[2020-07-29 06:43] LABS: HEMATOCRIT 33.3 % (37.0-47.0); HEMOGLOBIN 11.2 gm/dL (12.0-15.0); MCH 28.4 pg (26.0-34.0); MCHC 33.6 g/dL (28.0-37.0); MCV 84.7 fL (80.0-100.0); MPV 7.3 fl. (7.2-11.1); RBC 3.93 mil/uL (4.20-5.00); WBC 10.6 thou/uL (4.0-11.0)
[2020-07-29 06:56] LABS: CALCIUM 7.6 mg/dL (8.5-10.1); CREATININE 0.9 mg/dL (0.6-1.3); MAGNESIUM 1.9 mg/dL (1.8-2.4); POTASSIUM 4.1 mmol/L (3.5-5.1); TOTAL BILIRUBIN 0.4 mg/dL (<0.1-1.0); TOTAL PROTEIN 6.1 g/dL (6.4-8.2)
[2020-07-29 08:00] VITALS: BP 164/79
[2020-07-29 12:30] VITALS: BP 119/55
[2020-07-29 16:00] VITALS: BP 124/42
--- NOTE | 2020-07-29 17:58 | NUR ---
ASSUMED PT CARE AT 0730, PT AOX4 AND SLEEPY TODAY. PT C/O ARTHRITIS PAIN THIS AFTERNOON TREATED W/ PRN TYLENOL. PT WAS NAUSEOUS THROUGHOUT THE DAY AND GIVEN ZOFRAN TWICE W/ SOME RELIEFT. PT APPETITE LOW TODAY, GOT UP TO CHAIR W/ PT, WORKED W/ RT. PT GOAL IS TO KEEP SATS ABOVE 90% AND INCREASE ORAL INTAKE. PT REFUSED VITAMINS THIS MORNING R/T NAUSEA BUT TOOK MORE IMPORTANT MEDS. MEDS PER AUG, HOURLY ROUNDING OBSERVED, FALL PRECAUTIONS IN PLACE, CALL LIGHT W/IN REACH.
[2020-07-30] VITALS: BP 106/55
[2020-07-30 04:00] VITALS: BP 142/67
--- NOTE | 2020-07-30 05:05 | NUR ---
PT AO X4 LYING IN BED AT TIME OF ASSESSMENT. TWAN HAD AN EPISODE OF DESATURATION YESTERDAY WHERE SHE WAS FOUND WITHOUT HER O2 ON AND SAT IN THE 50s IT TOOK HER SOME TIME TO REGAIN SAT >90. THIS PM SHE IS ON 15L HFNC WITH 15L NONREPREATHER OVER IT WITH SAT OF 94%. SHE IS NOT FEELING THE BEST, COMPLAINING OF BACK PAIN FOR WHICH TYLENOL WAS GIVEN. SHE DID TAKE HER PM MEDS WITH NO COMPLAINT OF NAUSEA. SHE SLEPT WELL THIS PM. HER HEARTRATE HAS BEEN SLOWLY DECREASING AND WAS DOWN IN THE 49-50s AT THE LOWEST. ANTIBIOTICS WERE SWITCHED FROM ZOSYN TO MEREPENEM.
[2020-07-30 08:30] VITALS: BP 89/58
[2020-07-30 12:33] VITALS: BP 137/64
--- NOTE | 2020-07-30 13:06 | 2DMMODE ---
[place] [address] 2 D/M-MODE ECHOCARDIOGRAM Name: TWAN LAMB Room: [address] ADM IN .Yas.#: [id number] Admission: 07/24/20 Attend Phys: Daija Stewart Discharge: Date of : 42 Date of Service: 07/30/20 1306 Report #: [id number] THIS REPORT FOR: cc: Cheryle Diehl MD, Lin W. MD Blick, David R. MD [facility] ~ APPROVED REPORT Study performed: 07/30/2020 10:28:29 EXAM: Limited 2D Echocardiogram Patient Location: In-Patient Room #: [facility] Status: routine BSA: 1.63 HR: 74 bpm BP: 89/58 mmHg Rhythm: NSR Other Information Study Quality: Good Indications hypoxia Left Ventricle The left ventricle is normal size. There is normal LV segmental wall motion. There is normal left ventricular wall thickness. The left ventricular systolic function is normal. The left ventricular ejection fraction is within the normal range. LVEF is 55-60%. Right Ventricle The right ventricle is normal size. The right ventricular systolic function is normal. Atria The left atrium size is normal. The right atrium size is normal. Aortic Valve The aortic valve is normal in structure. Mitral Valve The mitral valve is normal in structure. [facility] [address] [place] [address] 2 D/M-MODE ECHOCARDIOGRAM Name: TWAN LAMB Room: [address] IN .R.#: [id number] Admission: 07/24/20 Attend Phys: Daija Stewart Discharge: Date of : 42 Date of Service: 07/30/20 1306 Report #: [id number] Tricuspid Valve The tricuspid valve is normal in structure. Trace tricuspid regurgitation. Pulmonic Valve Pulmonic valve is not well visualized. Great Vessels The aortic root is normal in size. IVC is normal in size and collapses >50% with inspiration. Pericardium There is no pericardial effusion. <Conclusion> The left ventricular systolic function is normal. The left ventricular ejection fraction is within the normal range. There is no pericardial effusion. <ELECTRONICALLY SIGNED> By: Kd Verdin MD, FACC 07/30/20 1306 130 130 Kd Verdin MD, FACC /INF
--- NOTE | 2020-07-30 13:20 | EKG ---
[place] [address] ELECTROCARDIOGRAM REPORT Name: TWAN LAMB Room: [address] ADM IN .R.#: [id number] Admission: 07/24/20 Attend Phys: Daija Stewart Discharge: Date of : 42 Date of Service: 07/27/20 2330 Report #: [id number] THIS REPORT FOR: //name// [facility] Test Date: 2020-07-27 Test Time: 23:30:42 Pat Name: TWAN LAMB Department: Room: [facility] Gender: F Steam Tender: BXIONG : 1940 Requested By: Daija Stewart Order Number: [id number] Reading MD: Kd Verdin Measurements Intervals [place] Rate: 130 P: VT: QRS: -31 QRSD: 100 T: 58 QT: 344 QTc: 506 Interpretive Statements Atrial fibrillation Left axis deviation Prolonged QT interval Compared to ECG 07/23/2020 21:30:15 Prolonged QT interval now present Sinus rhythm no longer present Electronically Signed On 07-30-2020 13:20:17 ENVIRONMENTAL HEALTH INSPECTOR by Kd Verdin [email or web address] <ELECTRONICALLY SIGNED> By: Kd Verdin MD, [facility] 07/30/20 1320 2330 29 Kd Verdin MD, [facility] /EPI
--- NOTE | 2020-07-30 16:00 | NUR ---
DISCUSSED IN PRIME TIME ROUNDS. IS ON 45L/HFC. IN AND MADE RECOMMENDATIONS. DCD IV ANTIBIOTICS. WILL FOLLOW.
[2020-07-30 17:01] VITALS: BP 134/62
[2020-07-30 20:15] VITALS: BP 115/56
--- NOTE | 2020-07-30 20:45 | NUR ---
PT TOOK PM PILLS AND THEN GOT NAUSEATED AND VOMITIED, SHE HAS DONE THIS SEVERAL TIMES IN RECENT PAST.
[2020-07-31 01:51] VITALS: BP 130/81
--- NOTE | 2020-07-31 05:14 | NUR ---
PT AO X4 LYING IN BED. SHE HAS HAD INCREASE OXYGEN USE THE PAST 24 HRS GOING FROM NC TO HIGH FLOW NC15L WITH NONREBREATHER MASK 15L OVER AND STARTED BIPAP THIS PM SHIFT. PT IS NOT TOLORATING THIS WELL. SHE IS DEPRESSED AND FIGITS WITH MASK CONSTANTLY. DESPITE EDUCATION FROM RT AND NSG STAFF PT IS RESISTANT TO USE. LUNGS ARE DIMINISHED THROUGHOUT BP WAS A BIT ELEVATED THIS AM, PRESUMABLY FROM STRESS/ANXIETY OF BIPAP. SHE DID HAVE ANOTHER BOUT OF NAUSEA AND VOMITIED IMMEDIATELY AFTER TAKING PM PILLS. SHE GETS GOOD PO FLUID INTAKE BUT STATES FOOD DOES NOT TASTE GOOD TO HER.
[2020-07-31 05:50] VITALS: BP 128/58
[2020-07-31 06:03] LABS: ABSOLUTE BASOPHILS 0.1 thou/uL (0.0-0.2); ABSOLUTE LYMPHOCYTES 0.6 thou/uL (0.8-5.3); ABSOLUTE MONOCYTES 0.5 thou/uL (0.0-1.2); ABSOLUTE NEUTROPHILS 10.5 thou/uL (1.6-8.1); BASOPHILS 0.8 %; EOSINOPHILS 0.1 %; HEMATOCRIT 34.4 % (37.0-47.0); HEMOGLOBIN 11.4 gm/dL (12.0-15.0); LYMPHOCYTES 4.8 %; MCV 84.9 fL (80.0-100.0); MONOCYTES 4.2 %; MPV 7.1 fl. (7.2-11.1); NUCLEATED RBCS 0 /100WBC; PLATELET COUNT* 547 thou/uL (150-400); POLYS 90.1 %; RBC 4.05 mil/uL (4.20-5.00); RDW-CV 14.6 % (10.5-14.5); WBC 11.6 thou/uL (4.0-11.0)
[2020-07-31 06:13] LABS: ALBUMIN 2.3 g/dL (3.4-5.0); CALCIUM 8.7 mg/dL (8.5-10.1); CREATININE 0.7 mg/dL (0.6-1.3); POTASSIUM 3.9 mmol/L (3.5-5.1); TOTAL BILIRUBIN 0.6 mg/dL (<0.1-1.0); TOTAL PROTEIN 6.4 g/dL (6.4-8.2)
[2020-07-31 08:00] VITALS: BP 128/58
[2020-07-31 12:00] VITALS: BP 132/61
--- NOTE | 2020-07-31 13:00 | NUR ---
PT STATES SHE DOES NOT WANT TOP BE DNR. PCT AT BEDSIDE WELL. PT REMOVED BRACELET AND REPEATED THIS REQUEST. DR IQBAL NOTIFIED AND STATUS UPDATED.
--- NOTE | 2020-07-31 17:18 | NUR ---
PT.CONTS ON HIGH LITER FLOW OF 02. CONTINUES TO BE NAUSEOUS AND VOMITS SOME. CONTINUE MEDS AND PLAN OF CARE.
--- NOTE | 2020-07-31 19:07 | NUR ---
PT A&OX4, PT UP AD NAM OR SBA TO BSC. PT ON HEATED HIGH-FLOW 45L. IV TO LFA STARTED BY JUAN HE THIS SHIFT. SON AND DIL UPDATED BY PHONE THIS SHIFT. PT ROOM NOT CHANGED PER DR MACKAY STATING PT NOT STABLE ENOUGH TO RELOCATE. SINUS ON MONITOR AT THIS TIME. PT HAD RUN OF AFIB RVR INDICATED ON EKG THIS EVENING. PHYSICIAN ON-CALL NOTIFIED AND CARDIOLOGY CONSULTED. PT RETURNED TO SINUS WITHOUT INTERVENTION, PHYSICIAN NOTIFIED. PT REMAINS CONTINENT OF B/B. PT RESTS IN BED WITH CALL LIGHT IN REACH.
[2020-07-31 19:31] VITALS: BP 136/67
[2020-07-31 23:38] VITALS: BP 127/53
--- NOTE | 2020-08-01 04:03 | NUR ---
PT A&OX4, VSS ON 45L HEATED HIGH FLOW NC - BIPAP AT 80% WHILE SLEEPING, IV SALINE LOCKED, PT UP TO BSC, NO C/O PAIN OR DISCOMFORT THIS SHIFT. PT SA WITH PAC'S, SR AT TIMES. PT SLEEPING WELL. WILL CONTINUE TO MONITOR.
[2020-08-01 04:40] VITALS: BP 133/55
[2020-08-01 06:15] LABS: ABSOLUTE BASOPHILS 0.2 thou/uL (0.0-0.2); ABSOLUTE LYMPHOCYTES 0.4 thou/uL (0.8-5.3); ABSOLUTE MONOCYTES 0.4 thou/uL (0.0-1.2); ABSOLUTE NEUTROPHILS 10.9 thou/uL (1.6-8.1); BASOPHILS 1.4 %; HEMATOCRIT 34.7 % (37.0-47.0); HEMOGLOBIN 11.3 gm/dL (12.0-15.0); LYMPHOCYTES 3.5 %; MCH 27.7 pg (26.0-34.0); MCHC 32.7 g/dL (28.0-37.0); MCV 84.8 fL (80.0-100.0); MPV 7.1 fl. (7.2-11.1); NUCLEATED RBCS 0 /100WBC; PLATELET COUNT* 520 thou/uL (150-400); POLYS 92.1 %; RBC 4.09 mil/uL (4.20-5.00); RDW-CV 14.7 % (10.5-14.5); WBC 11.9 thou/uL (4.0-11.0)
[2020-08-01 06:34] LABS: ALBUMIN 2.1 g/dL (3.4-5.0); CALCIUM 8.6 mg/dL (8.5-10.1); CREATININE 0.6 mg/dL (0.6-1.3); MAGNESIUM 2.1 mg/dL (1.8-2.4); POTASSIUM 4.1 mmol/L (3.5-5.1); TOTAL BILIRUBIN 0.7 mg/dL (<0.1-1.0); TOTAL PROTEIN 6.5 g/dL (6.4-8.2)
[2020-08-01 07:45] VITALS: BP 149/68
[2020-08-01 11:28] VITALS: BP 117/48
--- NOTE | 2020-08-01 11:51 | EKG ---
[place] [address] ELECTROCARDIOGRAM REPORT Name: TWAN LAMB Room: [address] ADM IN M.R.#: [id number] Admission: 07/24/20 Attend Phys: Daija Stewart Discharge: Date of : 42 Date of Service: 07/31/20 1830 Report #: [id number] THIS REPORT FOR: //name// [facility] Test Date: 2020-07-31 Test Time: 18:30:02 Pat Name: TWAN LAMB Department: Room: [address] Gender: F Library Sales Consultant: darius : 1940 Requested By: Daija Stewart Order Number: [id number] Abida MD: Kd Verdin Measurements Intervals [place] Rate: 150 P: DE: QRS: -40 QRSD: 76 T: 79 QT: 283 QTc: 447 Interpretive Statements Atrial fibrillation with rapid V-rate LVH with secondary repolarization abnormality Inferior infarct, old Compared to ECG 07/27/2020 23:30:42 Left ventricular hypertrophy now present Prolonged QT interval no longer present Electronically Signed On 08-01-2020 11:51:37 LOFTER by Kd Verdin [email or web address] <ELECTRONICALLY SIGNED> By: Kd Verdin MD, FAC 08/01/20 1151 1830 1830 Kd Verdin MD, FAC /EPI
--- NOTE | 2020-08-01 16:15 | NUR ---
IN . RECOMMENDATIONS MADE. REPEAT COVID PCR SENT AND PENDING. ON ALL ORAL MEDS NOW. BIPAP AT NIGHT. HEATED HI FLOW O2 DAYS. WILL CONTINUE TO FOLLOW.
[2020-08-01 16:39] VITALS: BP 134/62
--- NOTE | 2020-08-01 18:49 | NUR ---
PT A&OX4 VSS. ACCUCHECK, INSULIN ADMINISTERED INDICATED. IV TO LFA AND RT HAND, PATENT AND DRESSINGS C/D/I. PT REMAINS SINUS ON MONITOR. EVENING DOSE DIG HELD FOR LOW HEART RATE. PT UP TO RECLINER AND BATHED THIS SHIFT. PT REMAINS ON HEATED HIGH FLOW O2. PT REPORTS IMPROVED APPETITE AND DENIES N/V. REPEAT PCR SENT TO LAB ORDERED. PT RESTS IN ROOM WITH CALL LIGHT IN REACH.
[2020-08-01 20:05] VITALS: BP 148/71
[2020-08-02] VITALS: BP 149/46
[2020-08-02 04:00] VITALS: BP 144/65
--- NOTE | 2020-08-02 04:21 | NUR ---
PT A&OX4, VSS ON 45L HHF NC - BIPAP WHILE SLEEPING, PT UP TO BSC, SR-SB ON TELE MONITOR, IV SALINE LOCKED, PT SLEEPING WELL, WILL CONTINUE TO MONITOR.
[2020-08-02 05:04] LABS: CALCIUM 8.5 mg/dL (8.5-10.1); CREATININE 0.6 mg/dL (0.6-1.3); MAGNESIUM 1.9 mg/dL (1.8-2.4)
[2020-08-02 08:00] VITALS: BP 133/51
--- NOTE | 2020-08-02 08:32 | CON ---
[address] [address] CONSULTATION Name: TWAN LAMB Room: [address] IN [place].Yas.#: [id number] Admission: 07/24/20 Attend Phys: [place] Vu Discharge: Date of : 42 Report #: [id number] THIS REPORT FOR: cc: Cheryle Diehl MD, Lin W. MD ~ Kd Verdin MD [facility] DATE OF SERVICE: 08/01/2020 CARDIOLOGY CONSULTATION HISTORY OF PRESENT ILLNESS: The patient is a 79-year-old single white female who I was asked to see in the hospital today because of her history of atrial fibrillation. The patient has a long and extensive past medical history. She apparently had back surgery at [facility] in 2017 and went into atrial fibrillation. She did not require cardioversion. She was placed on Eliquis and has been followed by assembly member at [facility] since that time. She apparently had a stress test in the past. She has no history of coronary artery disease. She is actually admitted here to [place] a month ago with COVID-19 pneumonia. She apparently went into atrial fibrillation at that time, was placed on sotalol and converted to sinus rhythm. She was sent home, but readmitted a week ago with continued shortness of breath and cough. She was placed on oxygen. She continues to be short of breath and a cough. Because of her atrial fibrillation, Cardiology consultation requested. She denies any chest pain, palpitations, syncope or peripheral edema. She has lost her sense of taste and smell. PAST MEDICAL HISTORY: She has had a hip surgery, tonsillectomy, cholecystectomy, cataract extraction and she has a history of hypertension. MEDICATIONS: At home consists of ProAir, Eliquis, lisinopril, Crestor, and she was recently started on sotalol. ALLERGIES: SHE HAS A PREVIOUS ALLERGY TO KEFLEX. FAMILY HISTORY: Her mother had congestive heart failure. SOCIAL HISTORY: She is , lives by herself here in [place]. Quit smoking years ago. No alcohol abuse. REVIEW OF SYSTEMS: She has had no history of stroke, liver disease, GI bleeding or kidney disease. She has had skin cancer. No psychiatric illness. She does wear glasses. PHYSICAL EXAMINATION: [place] [address] CONSULTATION Name: TWAN LAMB Room: [address]#: [id number] Admission: 07/24/20 Attend Phys: [place] Vu Discharge: Date of : 42 Report #: [id number] GENERAL: Revealed a frail-appearing elderly female lying in bed. She appeared in no acute distress. VITAL SIGNS: She has a blood pressure of 130/70, pulse 70 and she is afebrile. HEENT: She was anicteric. Conjunctivae pink. Mucous membranes are moist. NECK: Veins do not appear distended. No carotid bruits. CHEST: Revealed decreased breath sounds. CARDIOVASCULAR: Regular rate and rhythm. No murmurs. ABDOMEN: Soft. EXTREMITIES: Had no edema. Dorsalis pedis pulse 2+. SKIN: Cool and dry. NEUROLOGIC: Nonfocal. DIAGNOSTIC DATA: ECG on admission last week showed a sinus rhythm. There is no QT prolongation noted on the monitor during the patient's hospitalization over the past week. She has remained in a sinus rhythm, occasional PACs. There appears to be an episode of atrial fibrillation 5 days ago with a rapid ventricular response rate that converted back to a sinus rhythm. She has just occasional PACs. Her workup, she actually had an echocardiogram performed last week that showed normal ejection fraction, no pericardial effusion. Her x-rays, she had a portable chest x-ray when she was admitted that showed normal heart size and interstitial infiltrates. She had a repeat chest x-ray earlier today that showed bilateral interstitial infiltrates that were somewhat improved. No pneumothorax. She actually had a CT scan of the chest on admission that showed no pulmonary embolus, hiatal hernia and bilateral infiltrates consistent with COVID pneumonia. LABORATORY WORK: Sodium 127, potassium 4.1 and creatinine 0.6. Her liver function studies were normal. Her TSH last month was 0.1 and T4 of 1.38. White blood cell count 11.9, hematocrit 34.7. Her COVID PCR test last week was not detected. IMPRESSION AND RECOMMENDATIONS: 1. Paroxysmal atrial fibrillation. I would recommend increasing sotalol to 120 mg twice a day. I would continue chronic anticoagulation with Eliquis. 2. Hypertension. The patient is on ADOLPH inhibitor. 3. Hyperlipidemia. The patient is on a statin drug. 4. COVID-19 pneumonia. The patient is still requiring oxygen. 5. Previous tobacco abuse. <ELECTRONICALLY SIGNED> By: Kd Verdin MD, FACC 08/02/20 0832 0858 [id number] Verdin MD, FAC /nt
[2020-08-02 11:54] VITALS: BP 129/58
--- NOTE | 2020-08-02 13:23 | NUR ---
CM INFORMED DURING PRIME ROUNDING OF THE PLAN OF CARE FOR THE PT. PT'S PCR RETUNE POSITIVE RESULT. PT'S O2 NEEDS INCREASED TO 50L HEATED HIGH FLOW AND 85% FIO2. PHYSICIANS RECOMMENDS PT'S BEING OFF ISOLATION. HOWEVER THIS IS STILL BEGING DISCUSSED. CM WILL REMAIN AVAILABLE TO ASSIST AND FOLLOW NEEDED FOR D/C PLANNING.
--- NOTE | 2020-08-02 14:07 | EKG ---
[place] [address] ELECTROCARDIOGRAM REPORT Name: TWAN LAMB Room: [address] ADM IN M.R.#: [id number] Admission: 07/24/20 Attend Phys: Daija Stewart Discharge: Date of : 42 Date of Service: 08/02/20 1005 Report #: [id number] THIS REPORT FOR: //name// [facility] Test Date: 2020-08-02 Test Time: 10:05:33 Pat Name: TWAN LAMB Department: Room: [address] Gender: F Air Saw Operator: [id number] : 1940 Requested By: Kd Verdin Order Number: [id number] Reading MD: Kd Verdin Measurements Intervals [place] Rate: 59 P: 3 ND: 131 QRS: -31 QRSD: 89 T: 33 QT: 426 QTc: 422 Interpretive Statements Sinus rhythm Multiple premature complexex supraven with abberancy left axis Probable anterior infarct, age indeterminate Compared to ECG 07/31/2020 18:30:02 Atrial fibrillation no longer present Left ventricular hypertrophy no longer present Myocardial infarct finding still present Electronically Signed On 08-02-2020 14:06:57 LICENSING COORDINATOR by Kd Verdin [email or web address] <ELECTRONICALLY SIGNED> By: Kd Verdin MD, [facility] 08/02/20 1406 1005 1005 Kd Verdin MD, [facility] /EPI
--- NOTE | 2020-08-02 15:57 | CON ---
[address] [address] CONSULTATION Name: TWAN LAMB Room: [address] IN M.R.#: [id number] Admission: 07/24/20 Attend Phys: [place] Vu Discharge: Date of : 42 Report #: [id number] THIS REPORT FOR: cc: Cheryle Diehl MD, Lin W. MD ~ Davin Sánchez MD Consult has been a requested by Dr. Radha Villanueva. INDICATION FOR CONSULTATION: Acute hypoxemic respiratory failure secondary to COVID-19. HISTORY OF PRESENT ILLNESS: A 79-year-old female was recently admitted to this hospital on 07/02. The patient did have COVID-19 at that time. She has a previous history of atrial fibrillation. She does take long-term anticoagulation. She does not have any known history of smoking, but she has used marijuana in the past. During the last hospitalization her COVID-19 antigen was positive, but interestingly her COVID-19 PCR was negative. We did treat her with corticosteroid as well as remdesivir. She subsequently was discharged in a stable condition. The patient subsequently was now admitted again on 07/23, there has been a progressive worsening in her respiratory status since admission. I saw her briefly last night and she was at that time walking around the room and was wearing 5 liters nasal cannula, did not appear to be in any distress. Also noted the patient was not wheezing last night. O2 saturation in fact improved and she was titrated down to 3 liters by this morning, but she is again more hypoxic, now and currently she is requiring 7-8 liters of oxygen to maintain O2 saturation in the low 90s. The patient was lying prone at the time of my evaluation and therefore, I was able to examine her from behind. He did have loud expiratory wheezes bilaterally. The patient did appear to be actively bronchospastic. On her lab work albumin is low at 1.8. BUN and creatinine in fact also on the lower side. Blood pressure is mildly elevated. The patient does report that she has shortness of breath. She also reports that she has a cough. There is not much sputum. He is febrile with a temperature of 38.0 at this time. She only has mild swelling of lower extremities. There is no chest pain. The patient does state that she has had nausea, the patient does report that she has been feeling weak. REVIEW OF SYSTEMS: 12 points is negative except as mentioned above. PAST MEDICAL HISTORY: Recent admission to this hospital with COVID-19 as above; chronic atrial fibrillation, on anticoagulation, hypertension, osteoporosis, restless legs syndrome, hyperlipidemia. Echo from last admission, which was done recently that shows a left ventricular ejection fraction of 55-60%, pulmonary artery systolic were not significantly elevated. SOCIAL HISTORY: The patient has used marijuana. [place] [address] CONSULTATION Name: TWAN LAMB Room: [address] IN [facility].#: [id number] Admission: 07/24/20 Attend Phys: [place] Vu Discharge: Date of : 42 Report #: [id number] smoking. There is occasional alcohol use. CURRENT MEDICATIONS: List in [employer] reviewed. HOME MEDICATIONS: List in [employer] reviewed. FAMILY HISTORY: The patient's mother has congestive heart failure. ALLERGIES: He reports having had a reaction to CEPHALEXIN; however, she currently is on Zosyn and is tolerating it well. She does not have an allergic reaction to penicillins. PHYSICAL EXAMINATION: GENERAL: She is alert, awake and oriented. The patient was last night on 5 liters nasal cannula, walking around and her chest was essentially clear to auscultation. This has changed today as below, today on my evaluation, she is lying prone. VITAL SIGNS: Had a pulse of 78 and a blood pressure 145/61, respiratory rate was elevated to 24. She was febrile with a temperature of 38.0. The patient was requiring oxygen at 7-8 liters to maintain O2 saturation in the low 90s. HEENT: Head is normocephalic and atraumatic. NECK: Does not show raised JVP, asymmetry, mass or lymph nodes. CHEST: Symmetrical expansion on inspection and palpation. On auscultation, unlike yesterday I am hearing significant wheezing primarily expiratory wheezes bilaterally. Breath sounds are bilaterally equal. HEART: Regular. There is no murmur. ABDOMEN: Soft and nontender. EXTREMITIES: Lower extremities show trace edema only. There is no calf tenderness. SKIN: Dry and intact. NEUROLOGICAL: Moves all extremities bilaterally equally and spontaneously with no focal deficit identified. LABORATORY DATA: The patient had a CT chest performed 2 days ago that shows pulmonary infiltrates consistent with ARDS secondary to COVID-19, chest x-rays, which in fact repeated 1 yesterday shows similar findings. I have ordered a chest x-ray pending at this time. ASSESSMENT AND PLAN: 1. Acute hypoxemic respiratory failure secondary to COVID-19, we will continue to titrate oxygen. I agree with having her Lupron. Also, would encourage ambulation to the extent feasible. She does not appear to require BiPAP at this time. However she declines, I will have a low threshold of using BiPAP. 2. COVID-19, ID service is on the case. I would therefore defer to ID [address] [place] [address] CONSULTATION Name: ZAINABTWAN Ashley Room: [address] ADM IN M.R.#: [id number] Admission: 07/24/20 Attend Phys: [place] Vu Discharge: Date of : 42 Report #: [id number] regarding whether they will be benefit in administering more remdesivir. She did receive remdesivir during the last admission, see discussion regarding corticosteroids as below. 3. Pulmonary infiltrates. Antibiotics per ID. There is a sputum culture sent yesterday, so far showing a mixed respiratory mika, follow up final results. 4. Bronchospasm. She is wheezing today and does appear to be actively bronchospastic. This is a change from my exam yesterday. I ordered one dose of Solu-Medrol. I increased dexamethasone to b.i.d. Recommend reevaluating tomorrow. If she fails to improve, then a further increase in dexamethasone dose can be a consideration, will continue current nebulized bronchodilators. 5. Mild fluid overload. Fluid overload is mild, but her albumin is on the lower side and BUN and creatinine are also on the lower side. Blood pressure is on the higher side so she should be able to tolerate significant amount of Lasix, especially if administered with albumin and this may lead to improvement in her oxygen needs and therefore, I did go ahead and order 25 grams of albumin with 80 of Lasix suggest reevaluating tomorrow regarding whether she will benefit from more Lasix. Note that the patient is on lisinopril. In case her BUN and creatinine remain normal, then I would recommend considering cutting back or discontinuing lisinopril, so that she could be kept more on the veneer drier tailer side. 6. Atrial fibrillation noted. The patient is on long-term anticoagulation. Note that also she is on sotalol. The patient is critically ill with acute hypoxemic respiratory failure secondary to COVID-19 and she is on high-flow oxygen. Total time spent providing critical care to this patient today exceeds 40 minutes. Thanks for this consultation. <ELECTRONICALLY SIGNED> By: Davin Sánchez MD 08/02/20 1557 1354 [id number] Sánchez MD /nt
[2020-08-02 16:48] VITALS: BP 134/61
--- NOTE | 2020-08-02 18:32 | NUR ---
ASSUMED CARE OF PATIENT AT 1620. PATIENT SETTLED TO ROOM. PATIENT DENIES ANY PAIN. PATIENT IS ON HEATED HIGH FLOW OXYGEN. PATIENT STATES SHE HAS POOR APPETITE AND DID NOT WANT DINNER. ENSURE AND ICE CREAM PROVIDED. PATIENT DENIES ANY NEEDS AT THIS TIME. CALL LIGHT WITHIN REACH.
[2020-08-02 20:00] VITALS: BP 117/69
[2020-08-03] VITALS (7 sets, daily range): BP systolic 118–147; BP diastolic 44–87
--- NOTE | 2020-08-03 06:52 | NUR ---
ASSUMED CARE OF PT AFTER REPORT AT 1930. PT A&OX4. VSS. PHYSICAL ASSESSMENT COMPLETED AND CHARTED. PT ON HFNC 50L/85%/BIPAP 80% AT HS. PT TRACING SB ON TELE. PT DENIES ANY PAIN. CALL LIGHT WITHIN REACH.
--- NOTE | 2020-08-03 07:45 | NUR ---
RECEIVED CALL FROM 2W THAT PATIENT WAS READY TO BE TAKEN OFF BIPAP. RT WENT TO PT'S ROOM AND THE PATIENT HAD ALREADY BEEN TAKEN OFF THE BIPAP AND PLACED ON HEATED HIGH FLOW, 50L 80%. PT'S SAT WAS 88%. INCREASED PATIENT TO 90%. PT'S SAT CAME UP TO 91%.
--- NOTE | 2020-08-03 13:56 | NUR ---
ON 50L/HFC DAYS. BIPAP ON NIGHTS. PT.TO BE UP IN CHAIR. DISCHARGE PLAN TO BE DETERMINED WHEN O2 NEEDS DECREASE AND THERAPY RESUMES. CONTINUE PLAN OF CARE.
--- NOTE | 2020-08-03 15:30 | NUR ---
ASSUMED PT CARE AT 0730. PT ALERT AND CONVERSATIONAL. PT EXCITED TO SEE A FAMILY MEMBER TODAY. ASSESSMENT COMPLETED, PT IS AFEBRILE AND REMAINS ON HHFNC AT 50L. NEW ORDERS NOTED TO TAPER ORAL STEROIDS AND WORK TO WEAN O2 TOLERATED.ALL MEDICATIONS ADMINISTERED ORDERED.PT UP AD NAM TO BATHROOM TOLERATED. O2 SATS 95,MONITORED WITH ACTIVITY AND PT DESAT TO MID TO UPPER 80'S WITH ACTIVITY. PT SITTING UP IN BED VISITING WITH DAUGHTER AND VOICES NO COMPLAINTS OF PAIN OR DISCOOMFORT. SAFETY MEASURES IN PLACE, CALL LIGHT IN PLACE. CONTINUE CURRENT PLAN OF CARE.
[2020-08-04] VITALS: BP 173/63
[2020-08-04 04:00] VITALS: BP 139/59
[2020-08-04 04:09] LABS: HEMATOCRIT 34.6 % (37.0-47.0); HEMOGLOBIN 11.4 gm/dL (12.0-15.0); MCH 27.7 pg (26.0-34.0); MCHC 32.9 g/dL (28.0-37.0); MCV 84.1 fL (80.0-100.0); MPV 6.8 fl. (7.2-11.1); RBC 4.12 mil/uL (4.20-5.00); RDW-CV 14.7 % (10.5-14.5); WBC 19.7 thou/uL (4.0-11.0)
[2020-08-04 04:34] LABS: ALBUMIN 1.8 g/dL (3.4-5.0); CALCIUM 8.7 mg/dL (8.5-10.1); CREATININE 0.6 mg/dL (0.6-1.3); MAGNESIUM 1.9 mg/dL (1.8-2.4); TOTAL BILIRUBIN 0.5 mg/dL (<0.1-1.0); TOTAL PROTEIN 6.3 g/dL (6.4-8.2)
--- NOTE | 2020-08-04 05:04 | NUR ---
PT ON 50 L HEATED HIGH FLOW. DID MANAGE TO KEEP BIPAP ON MOST OF THE SHIFT WHILE ASLEEP. SHE RECEIVED ALL MEDS SCHEDULED, UP ON HER OWN TO COMMODE. SHE DID NOT REPORT ANY WORSENING OF CONDITION, PAIN, NAUSEA. ENCOURAGED HYDRATION AND REST.
[2020-08-04 12:35] VITALS: BP 131/53
[2020-08-04 16:00] VITALS: BP 104/64
--- NOTE | 2020-08-04 17:21 | NUR ---
ASSUMED PT CARE AAAT 0730. PT IS A&OX4, PLEASANT AND RESPONDS READILY. ASSESSMENT COMPLETED AND ALL MEDICATIONS ADDMINISTERED ORDERED. SAFETY MEASURES IN PLACE, CALL LIGHT IN REACH. PT IS UP TO THE BSC AND CONTINENT OF B&B. PT REMAINS ON HHF AT 50L AT 75%. PT ON BIPAP AT NIGHT. CXR SHOWED MILD IMPROVEMENT IN LUNGS. BREATH SOUNDS ARE DIMINISHED WITH SLIGHT CRACKLES BILAT. SKIN IS DRY AND INTACT. PT VOICED NO CONCERNS AT THIS TIME.
[2020-08-04 20:00] VITALS: BP 148/75
[2020-08-05 00:49] VITALS: BP 143/54
[2020-08-05 05:39] VITALS: BP 123/57
[2020-08-05 11:30] VITALS: BP 116/54
[2020-08-05 12:25] LABS: BE 4.7 mmol/L (-2 to +3); PCO2 45.2 mmHg (35.0-45.0); PO2 71.4 mmHg (75.0-100.0); pH 7.434 (7.340-7.450)
[2020-08-05 16:00] VITALS: BP 136/63
--- NOTE | 2020-08-05 17:16 | NUR ---
ASSUMED PT CARE AT 0730. PT IS ALERT AND REMAINS ON HHFNC AT 50L. ASSESSMENT COMPLETED AND ALL MEDICATIONS ADMINISTERED ORDERED.PT WITH POOR INSPIRATIONS AND OXYGENATION APPEARS TO BE WORSENED TODAY. PHYSICIAN NOTIFIED, RT NOTIFIED. PT NOW ON BIPAP UNTILL DINNER TIME AND THEN REPLACED BACK ON BIPAP AFTER DINNER.SAFETY MEASURES IN PLACE.CONTINUE CURRENT PLAN OF CARE.
[2020-08-05 20:00] VITALS: BP 122/64
[2020-08-06] VITALS: BP 142/55; BP 91/46
[2020-08-06 04:00] VITALS: BP 131/56
[2020-08-06 04:40] LABS: HEMATOCRIT 33.4 % (37.0-47.0); MCH 27.9 pg (26.0-34.0); MCV 84.5 fL (80.0-100.0); MPV 7.3 fl. (7.2-11.1); RBC 3.96 mil/uL (4.20-5.00); RDW-CV 15.3 % (10.5-14.5); WBC 18.8 thou/uL (4.0-11.0)
[2020-08-06 04:48] LABS: CALCIUM 8.8 mg/dL (8.5-10.1); CREATININE 0.5 mg/dL (0.6-1.3); MAGNESIUM 2.1 mg/dL (1.8-2.4); POTASSIUM 4.4 mmol/L (3.5-5.1)
[2020-08-06 08:00] VITALS: BP 168/81
[2020-08-06 12:00] VITALS: BP 113/55
--- NOTE | 2020-08-06 13:09 | NUR ---
50L o2, bipap fio2 80%. Per PT on 08/05, recommending ARU at [place], consult placed. Therapies to continue working with Pt vs. HH. O2 needs up, got worse over the weekend.
[2020-08-06 16:00] VITALS: BP 113/51
--- NOTE | 2020-08-06 18:10 | NUR ---
ASSUMED PT CARE AT 0730, PT AOX4 AND C/O SHORTNESS OF BREATH THROUGHOUT SHIFT, RT CONSULTED AND WORKED W/ PT, BUMPED O2 UP AND PT SATS REMAINED ABOVE 90%. PT UP AD NAM TO BEDSIDE COMODE, REHAB CONSULT IN PLACE. GOAL IS TO KEEP SATS ABOVE 90% AND DECREASE SHORTNESS OF BREATH. MEDS PER AUG, HOURLY ROUNDING OBSERVED, CALL LIGHT W/IN REACH.
[2020-08-06 20:00] VITALS: BP 133/70
--- NOTE | 2020-08-06 20:00 | NUR ---
RECEIVED REPORT AND ASSUMED CARE OF PT, ASSESSMENT COMPLETED. HOB ELEVATED, O2 ON AT 50L/HHFC/90% FIO2. TOLERATING WELL. DOES GET SOA WITH ACTIVITY AND SLOW RECOVERY. TELEMETRY ON SHOWING SR WITH PAC. WILL CONT TO MONITOR AND ASSIST NEEDED.
[2020-08-07] VITALS (9 sets, daily range): BP systolic 91–120; BP diastolic 47–63
--- NOTE | 2020-08-07 06:38 | NUR ---
SLEPT WELL TONIGHT WITH BIPAP ON. AT THIS TIME CHANGED BACK TO HEATED HIFLOW CANNULA. TELEMETRY CONT TO SHOW SR WITH PAC. NO CHANGE IN ASSESSMENT. HS GOALS ACHIEVED. HOURLY ROUNDING OBSERVED.
--- NOTE | 2020-08-07 11:51 | NUR ---
Pt remains on bipap fio2 90%. ARU following vs HH. Anticipate dc in a few days.
--- NOTE | 2020-08-07 18:56 | NUR ---
ASSUMED PT CARE AT 0730, PT AOX4, C/O SHORTNESS OF BREATH MULTIPLE TIMES THROUGHOUT SHIFT, RT WORKED CLOSELY W/ PT TO KEEP SATS ABOVE 90%. PT DESATS WHEN SHE GETS UP TO [facility], ECTOR NOW IN PLACE. PT GOAL IS TO KEEP SATS ABOVE 90%, MEDS PER AUG, HOURLY ROUNDING OBSERVED, FALL PRECAUTIONS IN PLACE, CALL LIGHT W/IN REACH.
--- NOTE | 2020-08-07 20:14 | NUR ---
PT TRANSFERRED DOWN TO ICU BED 003 VIA BED AT APPROX 0745, REPORT GIVEN TO YING ESPAÑA. TRANSFERRED R/T NEEDING PRECEDEX DRIP TO KEEP O2 ON.
[2020-08-08] VITALS: BP 10/49; BP 100/49
[2020-08-08 04:00] VITALS: BP 100/40
[2020-08-08 04:00] LABS: HEMATOCRIT 33.4 % (37.0-47.0); MCH 27.6 pg (26.0-34.0); MCV 83.7 fL (80.0-100.0); RBC 3.99 mil/uL (4.20-5.00); RDW-CV 14.7 % (10.5-14.5); WBC 13.4 thou/uL (4.0-11.0)
--- NOTE | 2020-08-08 04:12 | NUR ---
ASSUMED PT CARE AT APPROX 1930. PT IS AWAKE AND ORIENTED X4. PT IS TRACING SA/SR/ST ON THE PONY RIDE OPERATOR. PT DENIES CHEST PAIN OR DISCOMFORT. spO2 MAINTAINED BETWEEN 90-95% ON THE HEATED HIFLOW/NASAL CANNULA WITH 50L OF O2, 90%FIO2. PT IS ABLE TO TOLERATE THE BIPAP FIO2 90% AT HS. PUREWICK IN PLACE, AND IS ABSORBING WELL. PUREWICK CHANGED PER PROTOCOL. NO ACUTE CHANGES THIS SHIFT. CALL LIGHT WITHIN REACH. HOURLY ROUNDING DONE FOR PT SAFETY. FALL PRECAUTIONS IN PLACE.
[2020-08-08 04:19] LABS: ALBUMIN 1.7 g/dL (3.4-5.0); CALCIUM 8.7 mg/dL (8.5-10.1); CREATININE 0.7 mg/dL (0.6-1.3); MAGNESIUM 2.1 mg/dL (1.8-2.4); POTASSIUM 4.4 mmol/L (3.5-5.1); TOTAL BILIRUBIN 0.5 mg/dL (<0.1-1.0); TOTAL PROTEIN 6.5 g/dL (6.4-8.2)
[2020-08-08 08:24] VITALS: BP 145/73
[2020-08-08 11:24] VITALS: BP 114/51
[2020-08-08 12:00] VITALS: BP 103/60
--- NOTE | 2020-08-08 13:18 | NUR ---
Therapies to see. ARU once o2 needs improve. Remains on bipap at [facility], [facility] during the day.
--- NOTE | 2020-08-08 14:02 | EKG ---
[place] [address] ELECTROCARDIOGRAM REPORT Name: TWAN LAMB Room: [address] IN M.R.#: [id number] Admission: 07/24/20 Attend Phys: Daija Stewart Discharge: Date of : 42 Date of Service: 08/03/20916 Report #: [id number] THIS REPORT FOR: //name// [facility] Test Date: 2020-08-03 Test Time: 09:17:37 Pat Name: TWAN LAMB Department: Room: [facility] [place] Gender: F Form Builder Helper: : 1940 Requested By: Kd Verdin Order Number: [id number] Abida MD: Rodney Watson Measurements Intervals [place] Rate: P: NE: QRS: QRSD: T: QT: QTc: Interpretive Statements Sinus rhythm Minor intraventricular conduction delay Minor nonspecific ST-T alterations Electronically Signed On 08-08-2020 14:02:48 DROP COUNT ASSOCIATE by Rodney Watson [email or web address] <ELECTRONICALLY SIGNED> By: Rodney Watson MD, [facility] 08/08/20 1402 6 6 Rodney Watson MD, FACC /EPI
--- NOTE | 2020-08-08 14:10 | EKG ---
[place] [address] ELECTROCARDIOGRAM REPORT Name: TWAN LAMB Room: [address] ADM IN M.R.#: [id number] Admission: 07/24/20 Attend Phys: Daija Stewart Discharge: Date of : 42 Date of Service: 08/07/20 1201 Report #: [id number] THIS REPORT FOR: //name// [facility] Test Date: 2020-08-07 Test Time: 12:01:17 Pat Name: TWAN LAMB Department: Room: [address] Gender: F Rescue Instructor: OSMIN : 1940 Requested By: Radha Villanueva Order Number: [id number] Abida MD: Rodney Watson Measurements Intervals [place] Rate: 114 P: ID: QRS: -33 QRSD: 78 T: 56 QT: 311 QTc: 429 Interpretive Statements Atrial fibrillation Ventricular tachycardia, unsustained Possible LVH with secondary repolarization abnormalities Old anterior OK cannot be excluded Compared to ECG 08/02/2020 10:05:33 Ventricular tachycardia now present Left ventricular hypertrophy now present Early repolarization now present Sinus rhythm no longer present Myocardial infarct finding still present Electronically Signed On 08-08-2020 14:09:57 PROPERTY APPRAISER by Rodney Watson [email or web address] <ELECTRONICALLY SIGNED> By: Rodney Watson MD, [facility] 08/08/20 1409 1201 1201 Rodney Watson MD, [facility] /EPI
--- NOTE | 2020-08-08 18:14 | NUR ---
ASSUMED PT CARE AT 0730. PT IS A&OX4.PT IS PLEASANT AND COOPERATIVE WITH GENERALIZED WEAKNESS AND AND TIRES VERY EASILY AND REQUIRES INCREASED OXYGENATION WITH ACTIVITY. ROM Q2H, PT/OT ATTEMPTED TO WORK WITH PT TODAY AND PT WEAK AND THEY WILL REATTEMPT TOMORROW. ENCOURAGED PT TO PARTICIPATE MUCH POSSIBLE TO INCREASE FUNCTIONAL AND MOBILITY STATUS. PT VERBALIZED UNDERSTANDING. NEW ORDER FOR SPUTUM CULTURE, PT ATTEMPTED BUT UNABLE TO COUGH ANYTHING UP. PT DENIES N/V. SAFETY MEASURES IN PLACE.
[2020-08-08 20:00] VITALS: BP 136/55
[2020-08-09] VITALS (7 sets, daily range): BP systolic 121–158; BP diastolic 52–68
--- NOTE | 2020-08-09 04:29 | NUR ---
ASSUMED PT CARE AT APPROX 1930. PT IS AWAKE AND ORIENTED X4. PT IS TRACING SR/SB ON THE [place]. PT APPEARS TO BE SHORT OF AIR AND IS TACHYPNEIC, RR IN THE HIGH 30's. spO2 IS IN THE UPPER 80's ON HHFC w/ 90% FIO2, RT INCREASED FIO2 TO 100%/55L OF O2. spO2 IN THE LOW 90'S BUT PT REMAINED TACHYPNEIC, PT PUT ON BIPAP WITH 100% FIO2, O2 SATS REMAINED IN THE LOW 90's BUT RESPIRATIONS STARTED TO SLOW DOWN TO 20's. PT IS CLOSELY MONITORED.
--- NOTE | 2020-08-09 14:54 | NUR ---
Anticipate dc in a few days. Pt on bipap fio2 100%.
--- NOTE | 2020-08-09 19:49 | NUR ---
ASSUMED PT CARE AT 0730. PT IS A&OX4, PLEASANT AND COOPERATIVE. PT CONTINUES TO REQUIRE HHF AT 50L TO MAINTAIN O2 SATS IN THE LOW 90'S. PT DESATS QUICKLY WITH ANY EXERTION AND BECOMES ANXIOUS. PRN ATIVAN GIVEN WITH EFFECTIVE RESULTS.PT ENCOURAGED AND REASSURED. PT ASSESSED AND ALL MEDICATIONS ADMINISTERED ORDERED. PT ASSISTED WITH REPOSITIONING TO PROMOTE COMFORT EVERY [address] ME[address] FAMILY VISITING. SON ASKED THAT THE PHYSICIAN CALL AND GIVE THE FAMILY (LA NENA LAMB [phone]) AN UPDATE ON PT'S STATUS. INFORMED ONCOMING NURSE. `
[2020-08-10 04:00] VITALS: BP 160/86
--- NOTE | 2020-08-10 05:02 | NUR ---
RECEIVED REPORT AND ASSUMED CARE OF PT AT 1929. ASSESSMENT COMPLETED AT 2129. O2 ON AT 50L/100% FIO2 PER [facility]. HOB ELEVATED. PT VERY SOA, UNABLE TO MOVE IN BED WITHOUT BECOMING EXTREMELY DYSPNEIC. PUREWICK IN PLACE BECAUSE OF THIS. TELEMETRY ON SHOWING SR. PT WAS GIVEN PRN LORAZEPAM AND PLACED ON BIPAP, VERY ANXIOUS, AIR HUNGER, RESP 40-50/MIN. DR NOTIFIED WITH ORDER RECEIVED. PT WAS ABLE TO REST AFTER THIS. HS GOALS OF REST, SAFETY AND OXYGENATION RECEIVED. HOURLY ROUNDING OBSERVED.
--- NOTE | 2020-08-10 09:19 | NUR ---
ASSESS PT WITH DR. IQBAL. PT IS VERY SOB AND REQUESTING TO GO BACK ON BIPAP. PT WISHES FOR TO CALL FAMILY AND BE A DNR. GIVE PO MORPHINE FOR AIR HUNGER AND PLACE BACK ON BIPAP.
[2020-08-10 10:00] LABS: CALCIUM 8.2 mg/dL (8.5-10.1); CREATININE 0.5 mg/dL (0.6-1.3); POTASSIUM 4.6 mmol/L (3.5-5.1)
--- NOTE | 2020-08-10 11:28 | NUR ---
Pt now a DNR. Worse today, anxious. spoke with Pt and son regarding prognosis. Pt remains on bipap fio2 100%.
[2020-08-10 12:00] VITALS: BP 159/99
--- NOTE | 2020-08-10 13:30 | NUR ---
SPOKE WITH FAMILY AND PT AT BEDSIDE AND SHE CLEARLY TOLD ME THAT SHE WAS READY TO STOP ALL LIFE SAVING MEASURES AND HAVE COMFORT CARE TO EASE PASSING. PT STATED THAT SHE IS READY TO GO. FAMILY HAS AGREED TO THIS AND THEY STATE THAT THEY SUPPORT HER DECISION. INFORM DR. IQBAL AND HE GAVE ORDERS FOR COMFORT MEASURES AND PAIN MEDS TO EASE PASSING.
--- NOTE | 2020-08-10 15:37 | NUR ---
PT 1321 TODAY AND 2 NURSES CONFIRMED TIME OF . MTN #[phone]
--- NOTE | 2020-08-10 16:06 | NUR ---
[facility] NOTIFIED.
--- NOTE | 2020-08-10 17:17 | NUR ---
PT DISCHARGED TO [facility].
== END 2020-08-10 13:21 | DRG 177 ==
LOC: M.ERS 21:11 → M.TBA-ER 07-24 00:24 → M.ORTHSURG 07-24 00:24 → M.2W 08-02 16:17
PROVIDERS: Internal Medicine; Internal Medicine Critical Care Medicine; Personal Emergency Response Attendant; ADMIT Internal Medicine; ATTEND Internal Medicine
PROC: 5A0935A Assistance with Respiratory Ventilation, Less than 24 Consecutive Hours, High Flow/Velocity Cannula (ICD-10-PCS; principal; 2020-07-27)
PROC: 5A0935A Assistance with Respiratory Ventilation, Less than 24 Consecutive Hours, High Flow/Velocity Cannula (ICD-10-PCS; 2020-07-28)
PROC: 5A0935A Assistance with Respiratory Ventilation, Less than 24 Consecutive Hours, High Flow/Velocity Cannula (ICD-10-PCS; 2020-07-29)
PROC: 5A09357 Assistance with Respiratory Ventilation, Less than 24 Consecutive Hours, Continuous Positive Airway Pressure (ICD-10-PCS; 2020-07-30)
PROC: 5A0935A Assistance with Respiratory Ventilation, Less than 24 Consecutive Hours, High Flow/Velocity Cannula (ICD-10-PCS; 2020-07-30)
PROC: 5A0935A Assistance with Respiratory Ventilation, Less than 24 Consecutive Hours, High Flow/Velocity Cannula (ICD-10-PCS; 2020-07-31)
PROC: 5A09357 Assistance with Respiratory Ventilation, Less than 24 Consecutive Hours, Continuous Positive Airway Pressure (ICD-10-PCS; 2020-07-31)
PROC: 5A09357 Assistance with Respiratory Ventilation, Less than 24 Consecutive Hours, Continuous Positive Airway Pressure (ICD-10-PCS; 2020-08-01)
PROC: 5A0935A Assistance with Respiratory Ventilation, Less than 24 Consecutive Hours, High Flow/Velocity Cannula (ICD-10-PCS; 2020-08-01)
PROC: 5A09357 Assistance with Respiratory Ventilation, Less than 24 Consecutive Hours, Continuous Positive Airway Pressure (ICD-10-PCS; 2020-08-02)
PROC: 5A0935A Assistance with Respiratory Ventilation, Less than 24 Consecutive Hours, High Flow/Velocity Cannula (ICD-10-PCS; 2020-08-02)
PROC: 5A09357 Assistance with Respiratory Ventilation, Less than 24 Consecutive Hours, Continuous Positive Airway Pressure (ICD-10-PCS; 2020-08-03)
PROC: 5A0935A Assistance with Respiratory Ventilation, Less than 24 Consecutive Hours, High Flow/Velocity Cannula (ICD-10-PCS; 2020-08-03)
PROC: 5A0935A Assistance with Respiratory Ventilation, Less than 24 Consecutive Hours, High Flow/Velocity Cannula (ICD-10-PCS; 2020-08-04)
PROC: 5A09357 Assistance with Respiratory Ventilation, Less than 24 Consecutive Hours, Continuous Positive Airway Pressure (ICD-10-PCS; 2020-08-04)
PROC: 5A09357 Assistance with Respiratory Ventilation, Less than 24 Consecutive Hours, Continuous Positive Airway Pressure (ICD-10-PCS; 2020-08-05)
PROC: 5A0935A Assistance with Respiratory Ventilation, Less than 24 Consecutive Hours, High Flow/Velocity Cannula (ICD-10-PCS; 2020-08-05)
PROC: 5A0935A Assistance with Respiratory Ventilation, Less than 24 Consecutive Hours, High Flow/Velocity Cannula (ICD-10-PCS; 2020-08-06)
PROC: 5A09357 Assistance with Respiratory Ventilation, Less than 24 Consecutive Hours, Continuous Positive Airway Pressure (ICD-10-PCS; 2020-08-06)
PROC: 5A0935A Assistance with Respiratory Ventilation, Less than 24 Consecutive Hours, High Flow/Velocity Cannula (ICD-10-PCS; 2020-08-07)
PROC: 5A09357 Assistance with Respiratory Ventilation, Less than 24 Consecutive Hours, Continuous Positive Airway Pressure (ICD-10-PCS; 2020-08-07)
PROC: 5A0935A Assistance with Respiratory Ventilation, Less than 24 Consecutive Hours, High Flow/Velocity Cannula (ICD-10-PCS; 2020-08-08)
PROC: 5A09357 Assistance with Respiratory Ventilation, Less than 24 Consecutive Hours, Continuous Positive Airway Pressure (ICD-10-PCS; 2020-08-08)
PROC: 5A0935A Assistance with Respiratory Ventilation, Less than 24 Consecutive Hours, High Flow/Velocity Cannula (ICD-10-PCS; 2020-08-09)
PROC: 5A09357 Assistance with Respiratory Ventilation, Less than 24 Consecutive Hours, Continuous Positive Airway Pressure (ICD-10-PCS; 2020-08-09)
DX: U07.1 COVID-19 (principal); J96.01 Acute respiratory failure with hypoxia; J15.6 Pneumonia due to other Gram-negative bacteria; E87.1 Hypo-osmolality and hyponatremia; I10 Essential (primary) hypertension; M81.0 Age-related osteoporosis without current pathological fracture; G25.81 Restless legs syndrome; M06.9 Rheumatoid arthritis, unspecified; E78.5 Hyperlipidemia, unspecified; E87.70 Fluid overload, unspecified; I48.0 Paroxysmal atrial fibrillation; R73.9 Hyperglycemia, unspecified; J84.10 Pulmonary fibrosis, unspecified; Z60.2 Problems related to living alone; Z66 Do not resuscitate; Z51.5 Encounter for palliative care; Z88.8 Allergy status to other drugs, medicaments and biological substances; Z82.49 Family history of ischemic heart disease and other diseases of the circulatory system; Z98.49 Cataract extraction status, unspecified eye; Z90.49 Acquired absence of other specified parts of digestive tract; Z80.41 Family history of malignant neoplasm of ovary; Z80.8 Family history of malignant neoplasm of other organs or systems; Z79.01 Long term (current) use of anticoagulants; Z79.899 Other long term (current) drug therapy

== ENCOUNTER → 2020-07-23 | Outpatient (CLI) | payer MEDICARE, OTHER ==
[~2020-07-23] MED LIST changes: +ADVAIR 250-501 EACH INH; +DOXYCYCLINE 10100 MG PO; +NEXIUM40 MG PO; +PROAIR HFA8.5 GM INH; +SORINE 80 MG TA80 M1 PO; +VITAMIN C1000 MG PO; +VITAMIN D325 MCG PO
== END ==
LOC: M.RAD 13:44
PROVIDERS: ATTEND Internal Medicine
DX: J18.9 Pneumonia, unspecified organism (principal)